=== PATIENT | female | born 1985 | race African-American/Black ===

== ENCOUNTER 2017-08-31 17:30 | Outpatient (CLI) | payer MEDICAID ==
[2017-08-31] MEDS ORDERED: ACETAMINOPHEN 325 MG TABLET PO ONE (18:34)
[2017-08-31] MEDS ORDERED: HYDROXYZINE PAMOATE 50 MG CAPSULE PO ONE (18:34)
[2017-08-31 18:38] LABS: APPEARANCE,URINE CLEAR; BILIRUBIN,URINE NEGATIVE (NEGATIVE); COLOR,URINE STRAW; GLUCOSE, URINE NEGATIVE (NEGATIVE); KETONES,URINE NEGATIVE (NEGATIVE); LEUKOCYTE ESTERASE,URINE NEGATIVE (NEGATIVE); NITRITE,URINE NEGATIVE (NEGATIVE); PROTEIN,URINE NEGATIVE (NEGATIVE); URINE SPECIFIC GRAVITY 1.009; UROBILINOGEN,URINE NEGATIVE mg/dL (<2.0)
[2017-08-31] MEDS ORDERED: ACETAMINOPHEN 325 MG TABLET ONE (18:39)
[2017-08-31 18:46] LABS: URINE AMPHETAMINES SCREEN NEGATIVE; URINE BARBITURATES SCREEN NEGATIVE; URINE BENZODIAZEPINES SCREEN NEGATIVE; URINE COCAINE SCREEN NEGATIVE; URINE MARIJUANA (THC) SCREEN NEGATIVE; URINE METHADONE SCREEN NEGATIVE; URINE PHENCYCLIDINE SCREEN NEGATIVE
--- NOTE | 2017-08-31 19:54 | RADIOLOGY REPORT (SQ) ---
EXAM DESCRIPTION: U/S OB LIMITED COMPLETED DATE/TIME: 08/31/2017 7:31 pm REASON FOR STUDY: cervical length COMPARISON: No previous this TECHNIQUE: Limited transabdominal and endovaginal grayscale ultrasound for evaluation of specific re quested obstetrical parameters. LIMITATIONS: None. FINDINGS: CERVICAL LENGTH: 3.4 cm Closed. LIZ: 6.2 cm. FHR: 144 beats per minute. PRESENTATION: Transverse OTHER: No other significant findings. IMPRESSION: LIMITED OBSTETRICAL ULTRASOUND WITH MEASURED PARAMETERS DELINEATED ABOVE. Trimester of : Second trimester - 13 weeks 1 day to 27 weeks 6 days. TECHNICAL DOCUMENTATION: JOB ID: [id number] [employer]- All Rights Reserved
== END 2017-08-31 20:12 | disposition home or self-care (01) ==
LOC: LC 17:30
PROVIDERS: ATTEND Obstetrics & Gynecology
PROC: 4A1HXCZ Monitoring of Products of Conception, Cardiac Rate, External Approach (ICD-10-PCS; principal; 2017-08-31)
DX: O26.892 Other specified pregnancy related conditions, second trimester (principal); M54.9 Dorsalgia, unspecified; Z3A.24 24 weeks gestation of pregnancy
CPT/HCPCS: 81001; 80307; 76815; 59899; J3490

== ENCOUNTER 2017-11-17 15:10 | Outpatient (CLI) | payer MEDICAID ==
--- NOTE | 2017-11-17 19:40 | Non Stress Test Report ---
Non Stress Test Datetime Report Generated by CPN: 11/17/2017 19:40 DEMOGRAPHIC EGA NST: 34.5 INDICATION Indication for Study: Ordered by Provider MONITORING Monitor Explained: Monitor Explained; Test Explained; Patient Verbalized Understanding Time on Monitor: 11/17/2017 15:18 Time off Monitor: 11/17/2017 18:34 NST Duration: 196 NST INTERVENTIONS NST Interventions: PO Hydration; Reposition Patient Physician Notified NST: H.Corey, CNM BABY A: [id number] BABY A Movement : Present Contraction Frequency : None FHR Baseline : 140 Accelerations : 10X10 Decelerations : None Variability : Moderate 6-25bpm NST Review: Does Not Meet Criteria for Reactive NST NST Review and Verified By : MARY Urbina Results: Non-Reactive NST REPORT Report Trigger: Send Report
--- NOTE | 2017-11-17 20:05 | RADIOLOGY REPORT (SQ) ---
EXAM DESCRIPTION: U/S PROFILE W/O STRESS COMPLETED DATE/TIME: 11/17/2017 7:31 pm REASON FOR STUDY: Non reactive NST - GDM 34.5 weeks COMPARISON: 08/31/2017 TECHNIQUE: Limited maldonado-scale realtime and static images of the fetus to measure specified parameter s. LIMITATIONS: None. FINDINGS: HEART RATE: 150 beats per minute. LIZ: 10.5 cm. BREATHING MOVEMENT: 2 points. MOVEMENT: 2 points. POSTURE AND TONE: 2 points. QUALITATIVE LIZ: 2 points. OTHER: No other significant finding. IMPRESSION: BIOPHYSICAL PROFILE: 03/10. Trimester of : Third - 28 weeks to delivery COMMENT: BREATHING MOVEMENTS: 2 POINTS: PRESENT 0 POINTS: ABSENT MOTION: 2 POINTS: PRESENT 0 POINTS: ABSENT TONE: 2 POINTS: PRESENT 0 POINTS: ABSENT AMNIOTIC FLUID VOLUME: 2 POINTS: LARGEST POCKET GREATER THAN 2 CM DEPTH. 0 POINTS: NO POCKET OF 2 CM. TECHNICAL DOCUMENTATION: JOB ID: [id number] [employer]- All Rights Reserved Reading location - IP/workstation name: [email or web address]
== END 2017-11-17 19:34 | disposition home or self-care (01) ==
LOC: LC 15:10
PROVIDERS: ATTEND Obstetrics & Gynecology Gynecology
PROC: 4A1HXCZ Monitoring of Products of Conception, Cardiac Rate, External Approach (ICD-10-PCS; principal; 2017-11-17)
DX: O24.419 Gestational diabetes mellitus in pregnancy, unspecified control (principal); Z3A.34 34 weeks gestation of pregnancy
CPT/HCPCS: 76819

== ENCOUNTER 2017-11-24 16:25 | Outpatient (CLI) | payer MEDICAID ==
--- NOTE | 2017-11-24 18:44 | RADIOLOGY REPORT (SQ) ---
EXAM DESCRIPTION: U/S PROFILE W/O STRESS COMPLETED DATE/TIME: 11/24/2017 6:27 pm REASON FOR STUDY: non reactive NST COMPARISON: 11/17/2017 TECHNIQUE: Limited maldonado-scale realtime and static images of the fetus to measure specified parameter s. LIMITATIONS: None. FINDINGS: HEART RATE: 162 beats per minute. LIZ: Normal. BREATHING MOVEMENT: 2 points. MOVEMENT: 2 points. POSTURE AND TONE: 2 points. QUALITATIVE LIZ: 2 points. OTHER: Vertex lie. IMPRESSION: BIOPHYSICAL PROFILE: 03/10. Trimester of : Third - 28 weeks to delivery COMMENT: BREATHING MOVEMENTS: 2 POINTS: PRESENT 0 POINTS: ABSENT MOTION: 2 POINTS: PRESENT 0 POINTS: ABSENT TONE: 2 POINTS: PRESENT 0 POINTS: ABSENT AMNIOTIC FLUID VOLUME: 2 POINTS: LARGEST POCKET GREATER THAN 2 CM DEPTH. 0 POINTS: NO POCKET OF 2 CM. TECHNICAL DOCUMENTATION: JOB ID: [id number] [employer]- All Rights Reserved Reading location - IP/workstation name: [email or web address]
--- NOTE | 2017-11-24 18:54 | Non Stress Test Report ---
Non Stress Test Datetime Report Generated by CPN: 11/24/2017 18:54 DEMOGRAPHIC EGA NST: 35.5 INDICATION Indication for Study: Diabetes Mellitus MONITORING Monitor Explained: Monitor Explained; Test Explained; Patient Verbalized Understanding Time on Monitor: 11/24/2017 16:28 Time off Monitor: 11/24/2017 17:56 NST Duration: 88 NST INTERVENTIONS NST Interventions: PO Hydration; For Biophysical Profile Physician Notified NST: C Palomares, CNM BABY A: [id number] BABY A Movement : Present Contraction Frequency : x0 FHR Baseline : 145 Accelerations : 10X10 Decelerations : None Variability : Moderate 6-25bpm NST Review: Does Not Meet Criteria for Reactive NST NST Review and Verified By : Jean Carlos BOOGIE NST Results: Non-Reactive NST COMMENTS NST Comments: BPP ordered NST REPORT Report Trigger: Send Report
== END 2017-11-24 18:52 | disposition home or self-care (01) ==
LOC: LC 16:25
PROVIDERS: ATTEND Obstetrics & Gynecology
PROC: 4A1HXCZ Monitoring of Products of Conception, Cardiac Rate, External Approach (ICD-10-PCS; principal; 2017-11-24)
DX: O24.415 Gestational diabetes mellitus in pregnancy, controlled by oral hypoglycemic drugs (principal); Z3A.35 35 weeks gestation of pregnancy
CPT/HCPCS: 59025; 76819

== ENCOUNTER 2017-11-27 11:29 | Outpatient (CLI) | payer MEDICAID | END 2017-11-27 12:23 | disposition home or self-care (01) | LOC: LC 11:29 | PROVIDERS: ATTEND Obstetrics & Gynecology Gynecology | PROC: 4A1HXCZ Monitoring of Products of Conception, Cardiac Rate, External Approach (ICD-10-PCS; principal; 2017-11-27) | DX: O24.419 Gestational diabetes mellitus in pregnancy, unspecified control (principal); Z3A.36 36 weeks gestation of pregnancy | CPT/HCPCS: 59025 ==

== ENCOUNTER 2017-12-01 14:17 | Outpatient (CLI) | payer MEDICAID ==
--- NOTE | 2017-12-01 14:24 | Non Stress Test Report ---
Non Stress Test Datetime Report Generated by CPN: 12/01/2017 14:24 DEMOGRAPHIC EGA NST: 36.1 INDICATION Indication for Study: Diabetes Mellitus; Ordered by Provider Indication for Study (NST) Other: GDM MONITORING Monitor Explained: Monitor Explained; Test Explained; Patient Verbalized Understanding Time on Monitor: 11/27/2017 11:37 Time off Monitor: 11/27/2017 12:19 NST Duration: 42 NST INTERVENTIONS NST Interventions: PO Hydration; Reposition Patient Physician Notified NST: Zeinab Gil, CNM BABY A: [id number] BABY A Movement : Present Contraction Frequency : 0 FHR Baseline : 125 Accelerations : 15X15 Decelerations : None Variability : Moderate 6-25bpm NST Review: Meets Criteria for Reactive NST NST Review and Verified By : Jose Alberto Goldberg RNC NST Results: Reactive NST REPORT Report Trigger: Send Report
--- NOTE | 2017-12-01 17:27 | Non Stress Test Report ---
Non Stress Test Datetime Report Generated by CPN: 12/01/2017 17:27 DEMOGRAPHIC EGA NST: 36.5 INDICATION Indication for Study: Diabetes Mellitus; Ordered by Provider MONITORING Monitor Explained: Monitor Explained; Test Explained; Patient Verbalized Understanding Time on Monitor: 12/01/2017 15:08 Time off Monitor: 12/01/2017 17:11 NST Duration: 123 NST INTERVENTIONS NST Interventions: PO Hydration; Reposition Patient Physician Notified NST: Dr. Lj BABY A Movement : Present Contraction Frequency : irregular FHR Baseline : 140 Accelerations : 15X15 Decelerations : None Variability : Moderate 6-25bpm NST Review: Meets Criteria for Reactive NST NST Review and Verified By : Jean Carlos De La Cruz RNC NST Results: Reactive NST REPORT Report Trigger: Send Report
== END 2017-12-01 17:15 | disposition home or self-care (01) ==
LOC: LC 14:17
PROVIDERS: ATTEND Obstetrics & Gynecology
PROC: 4A1HXCZ Monitoring of Products of Conception, Cardiac Rate, External Approach (ICD-10-PCS; principal; 2017-12-01)
DX: O24.419 Gestational diabetes mellitus in pregnancy, unspecified control (principal); Z3A.36 36 weeks gestation of pregnancy
CPT/HCPCS: 59025

== ENCOUNTER 2017-12-04 12:17 | Outpatient (CLI) | payer MEDICAID ==
--- NOTE | 2017-12-04 15:40 | RADIOLOGY REPORT (SQ) ---
EXAM DESCRIPTION: U/S PROFILE W/O STRESS COMPLETED DATE/TIME: 12/04/2017 3:08 pm REASON FOR STUDY: iup 37+1 GDM nonreactive NST COMPARISON: None. TECHNIQUE: Limited maldonado-scale realtime and static images of the fetus to measure specified parameter s. LIMITATIONS: None. FINDINGS: HEART RATE: 152 beats per minute. LIZ: 14.5 cm. BREATHING MOVEMENT: 2 points. MOVEMENT: 2 points. POSTURE AND TONE: 2 points. QUALITATIVE LIZ: 2 points. OTHER: No other significant finding. IMPRESSION: BIOPHYSICAL PROFILE: 03/10. Trimester of : Third - 28 weeks to delivery COMMENT: BREATHING MOVEMENTS: 2 POINTS: PRESENT 0 POINTS: ABSENT MOTION: 2 POINTS: PRESENT 0 POINTS: ABSENT TONE: 2 POINTS: PRESENT 0 POINTS: ABSENT AMNIOTIC FLUID VOLUME: 2 POINTS: LARGEST POCKET GREATER THAN 2 CM DEPTH. 0 POINTS: NO POCKET OF 2 CM. TECHNICAL DOCUMENTATION: JOB ID: [id number] [employer]- All Rights Reserved Reading location - IP/workstation name: [email or web address]
== END 2017-12-04 15:30 | disposition home or self-care (01) ==
LOC: LC 12:17
PROVIDERS: ATTEND Student in an Organized Health Care Education/Training Program
PROC: 4A1HXCZ Monitoring of Products of Conception, Cardiac Rate, External Approach (ICD-10-PCS; principal; 2017-12-04)
DX: O24.415 Gestational diabetes mellitus in pregnancy, controlled by oral hypoglycemic drugs (principal); Z3A.37 37 weeks gestation of pregnancy
CPT/HCPCS: 59025; 76819

== ENCOUNTER 2017-12-08 15:52 | Outpatient (CLI) | payer MEDICAID ==
--- NOTE | 2017-12-08 15:58 | Non Stress Test Report ---
Non Stress Test Datetime Report Generated by CPN: 12/08/2017 15:58 DEMOGRAPHIC EGA NST: 37.1 INDICATION Indication for Study: Ordered by Provider Indication for Study (NST) Other: gdm MONITORING Monitor Explained: Monitor Explained; Test Explained; Patient Verbalized Understanding Time on Monitor: 12/04/2017 12:33 Time off Monitor: 12/04/2017 15:24 NST Duration: 171 NST INTERVENTIONS NST Interventions: PO Hydration; Meal Given; Reposition Patient; Vibroacoustic Stim; For Biophysical Profile Physician Notified NST: H Corey CNM Physician Notified NST: Corey BABY A: [id number] BABY A Movement : Present Movement : Present Contraction Frequency : denies FHR Baseline : 145 Accelerations : 10X10 Decelerations : None Variability : Moderate 6-25bpm NST Review: Does Not Meet Criteria for Reactive NST NST Review and Verified By : Jose Alberto Goldberg [facility] NST Results: Reactive NST COMMENTS NST Comments: bpp 8/8 NST REPORT Report Trigger: Send Report
--- NOTE | 2017-12-15 10:45 | Non Stress Test Report ---
Non Stress Test Datetime Report Generated by CPN: 12/15/2017 10:45 DEMOGRAPHIC EGA NST: 37.5 INDICATION Indication for Study: Diabetes Mellitus; Ordered by Provider VITAL SIGNS Temperature - NST: 98.2 Pulse - NST: 136 RESP - NST: 18 NBPSYS NST: 119 NBPDIA NST: 73 MONITORING Monitor Explained: Monitor Explained; Test Explained; Patient Verbalized Understanding Time on Monitor: 12/08/2017 16:03 Time off Monitor: 12/08/2017 16:44 NST Duration: 41 NST INTERVENTIONS NST Interventions: PO Hydration; Reposition Patient Physician Notified NST: DR BOWIE BABY A: [id number] BABY A Movement : Present Contraction Frequency : X2 FHR Baseline : 140 Accelerations : 15X15 Decelerations : None Variability : Moderate 6-25bpm NST Review: Meets Criteria for Reactive NST NST Review and Verified By : Diana Pernell RNC NST Results: Reactive NST REPORT Report Trigger: Send Report
== END 2017-12-08 16:48 | disposition home or self-care (01) ==
LOC: LC 15:52
PROVIDERS: ATTEND Obstetrics & Gynecology
PROC: 4A1HXCZ Monitoring of Products of Conception, Cardiac Rate, External Approach (ICD-10-PCS; principal; 2017-12-08)
DX: O24.419 Gestational diabetes mellitus in pregnancy, unspecified control (principal); Z3A.37 37 weeks gestation of pregnancy
CPT/HCPCS: 59025

== ENCOUNTER 2017-12-15 11:15 | Outpatient (CLI) | payer MEDICAID | END 2017-12-15 12:06 | disposition home or self-care (01) | LOC: LC 11:15 | PROVIDERS: ATTEND Obstetrics & Gynecology | PROC: 4A1HXCZ Monitoring of Products of Conception, Cardiac Rate, External Approach (ICD-10-PCS; principal; 2017-12-15) | DX: O24.419 Gestational diabetes mellitus in pregnancy, unspecified control (principal); Z3A.38 38 weeks gestation of pregnancy | CPT/HCPCS: 36415; 59025; 83036 ==

== ENCOUNTER 2017-12-16 06:37 | Inpatient (IN) | payer MEDICAID ==
--- NOTE | 2017-12-16 06:40 | Non Stress Test Report ---
Non Stress Test Datetime Report Generated by CPN: 12/16/2017 06:40 DEMOGRAPHIC EGA NST: 38.5 INDICATION Indication for Study: Diabetes Mellitus; Ordered by Provider MONITORING Monitor Explained: Monitor Explained; Test Explained; Patient Verbalized Understanding Time on Monitor: 12/15/2017 11:33 Time off Monitor: 12/15/2017 11:54 NST Duration: 21 NST INTERVENTIONS NST Interventions: PO Hydration; Reposition Patient Physician Notified NST: CBouchra Palomares, CNM BABY A: [id number] BABY A Movement : Present Contraction Frequency : X1 FHR Baseline : 145 Accelerations : 15X15 Decelerations : None Variability : Moderate 6-25bpm NST Review: Meets Criteria for Reactive NST NST Review and Verified By : MARY De La Garza Results: Reactive NST REPORT Report Trigger: Send Report
[2017-12-16 07:36] LABS: ABSOLUTE BASOPHILS # (AUTO) 0.1 10^3/uL (0.0-0.2); ABSOLUTE EOSINOPHILS # (AUTO) 0.2 10^3/uL (0.0-0.6); ABSOLUTE LYMPHOCYTES (AUTO) 2.4 10^3/uL (0.5-4.7); ABSOLUTE MONOCYTES (AUTO) 0.6 10^3/uL (0.1-1.4); ABSOLUTE NEUT (AUTO) 4.3 10^3/uL (1.7-8.2); BASOPHILS % (AUTO) 0.7 % (0-2); EOSINOPHILS % (AUTO) 2.1 % (0-6); HEMATOCRIT 34.1 % (36.0-47.0); HEMOGLOBIN 11.6 g/dL (12.0-15.5); LYMPHOCYTES % (AUTO) 31.9 % (13-45); MEAN CORPUSCULAR HEMOGLOBIN 28.6 pg (27.0-33.4); MEAN CORPUSCULAR HGB CONC 33.9 g/dL (32.0-36.0); MEAN CORPUSCULAR VOLUME 84 fl (80-97); MONOCYTES % (AUTO) 7.6 % (3-13); PLATELET COUNT 250 10^3/uL (150-450); RED BLOOD COUNT 4.04 10^6/uL (3.72-5.28); RED CELL DISTRIBUTION WIDTH 14.7 % (11.5-14.0); SEGMENTED NEUTROPHILS % (AUTO) 57.7 % (42-78); TOTAL CELLS COUNTED % (AUTO) 100 %; WHITE BLOOD COUNT 7.5 10^3/uL (4.0-10.5)
[2017-12-16 08:01] LABS: ALANINE AMINOTRANSFERASE 27 U/L (9-52); ALBUMIN 2.8 g/dL (3.5-5.0); ALKALINE PHOSPHATASE 131 U/L (38-126); ANION GAP 11 (5-19); ASPARTATE AMINO TRANSFERASE 21 U/L (14-36); BLOOD UREA NITROGEN 10 mg/dL (7-20); CARBON DIOXIDE 17 mmol/L (22-30); CHLORIDE 109 mmol/L (98-107); GLUCOSE 190 mg/dL (75-110); POTASSIUM 4.1 mmol/L (3.6-5.0); SODIUM 137.2 mmol/L (137-145); TOTAL PROTEIN 5.5 g/dL (6.3-8.2)
[2017-12-16 08:04] LABS: APPEARANCE,URINE CLOUDY; BILIRUBIN,URINE NEGATIVE (NEGATIVE); COLOR,URINE YELLOW; GLUCOSE, URINE NEGATIVE (NEGATIVE); KETONES,URINE TRACE mg/dL (NEGATIVE); LEUKOCYTE ESTERASE,URINE MODERATE (NEGATIVE); NITRITE,URINE NEGATIVE (NEGATIVE); PROTEIN,URINE 30 mg/dL (NEGATIVE); URINE SPECIFIC GRAVITY 1.012; UROBILINOGEN,URINE NEGATIVE mg/dL (<2.0)
[2017-12-16] MEDS ORDERED: PENICILLIN G-K 5 MILLION UNIT VIAL ONE ×3 (08:04→16:51)
[2017-12-16] MEDS ORDERED: OXYTOCIN/NORMAL SALINE 20 UNIT/1,000 ML RTUINJ ONE (08:04)
[2017-12-16] MEDS ORDERED: LIDOCAINE 1% INJ-PF (10 MG/ML) 30 ML SDV ONE (08:04)
[2017-12-16] MEDS ORDERED: MISOPROSTOL 0.2 MG TABLET ONE (08:04)
[2017-12-16 08:09] LABS: BILIRUBIN,TOTAL < 0.1 mg/dL (0.2-1.3)
[2017-12-16] MEDS ORDERED: RINGERS SOLUTION,LACTATED 1,000 ML IV PRN (08:37)
[2017-12-16] MEDS ORDERED: RINGERS SOLUTION,LACTATED 300 ML IV ONE (08:37)
[2017-12-16] MEDS ORDERED: OXYTOCIN/NORMAL SALINE 20 UNIT/1,000 ML RTUINJ IV PRN ×2 (08:37→17:36)
[2017-12-16 08:39] LABS: URINE AMPHETAMINES SCREEN NEGATIVE; URINE BARBITURATES SCREEN NEGATIVE; URINE BENZODIAZEPINES SCREEN NEGATIVE; URINE COCAINE SCREEN NEGATIVE; URINE MARIJUANA (THC) SCREEN NEGATIVE; URINE METHADONE SCREEN NEGATIVE; URINE PHENCYCLIDINE SCREEN NEGATIVE
[2017-12-16] MEDS ORDERED: PENICILLIN G POTASSIUM 5,000,000 UNIT in DEXTROSE 5%-WATER 100 ML IV ONE (08:42)
--- NOTE | 2017-12-16 09:22 | Admission Physical ---
Datetime Report Generated by CPN: 12/16/2017 09:22 CURRENT ADMISSION Hx Assessment: The History has been Reviewed and is Current Chief Complaint: Scheduled Induction of Labor Indication for Induction: Maternal Diabetes Indication for Induction- Other: GDMA2, non-compliance Admit Impression : Term, Intrauterine ; No Active Labor; Intact Membranes; Induction of Labor Admit Plan: Admit to Unit; Initiate Labor Induction Protocol ALLERGIES Medication Allergies: Yes (Annotations: Data stored by [facility] on behalf of user) Medication Allergies: oxycodone HCl (12/15/2017) Latex: No Latex Allergies (Annotations: Data stored by N on behalf of user) Food Allergies: N/A Environmental Allergies: N/A OBSTETRICAL HISTORY EDC: 12/24/2017 00:00 : 8 Para: 2 Term: 2 : 0 SAB: 3 IAB: 0 Ectopic: 1 Livin Cesareans: 0 VBACs: 0 Multiple Births: 0 Gestational Diabetes: No Rh Sensitization: No Incompetent Cervix: No SHANTI: No Infertility: No ART Treatment: No Uterine Anomaly: No IUGR: No Hx Previous C/S: No Macrosomia: No Hx Loss/Stillborn: No PIH: No Hx : No Placenta Previa/Abruption: No Depression/PP Depression: No PTL/PROM: No Post Hemorrhage: No Obstetrical History Comments: G1 G2 G3 G4 G5 G6 G7 G8 current SEE RECORDS Alcohol: No Marijuana : No Cocaine: No Other Illicit Drugs: No Cigarettes: Former Smoker. 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 Surgery: No Heart Disease: No Hosp/Surgery: No Autoimmune Disorder: No Anesthetic Complications: No Kidney Disease: No Abnormal Pap Smear: No Neuro/Epilepsy: No Psychiatric Disorders: No Other Medical Diseases: No Hepatitis/Liver Disease: No Significant Family History: No Varicosities/Phlebitis: No Trauma/Violence : No Thyroid Dysfunction: No INFECTIOUS HISTORY Gonorrhea: No Genital Herpes: Yes Chlamydia: No Tuberculosis: No Syphilis: No Hepatitis: No HIV/AIDS Exposure: No Rash or Viral Illness: No HPV: No PHYSICAL EXAM General: Normal HEENT: Normal Neurologic: Normal Thyroid: Deferred Heart: Normal Lungs: Normal Breast: Normal Back: Normal Abdomen: Normal Genitourinary Exam: Normal Extremities: Normal DTRs: Normal Pelvic Type: Adequate Physical Exam Comments: pelvis proven 8lbs 14 oz Vital Signs: Reviewed VAGINAL EXAM Dilatation: 3 Effacement: 50 Station: -2 Contraction Comments: rare FETUS A EGA: 38.6 Monitoring: External US FHR- Baseline: 135 Variability: Moderate 6-25bpm Accelerations: 15X15 Decelerations: None FHR Category: Category I Estimated Weight (gm): 4000 Presentation: Vertex Admit Comment: Admit to L _ D, iol gdmA2 on metformin non-compliant care started with ochd hx pre-e, on asa hx hsv no lesions or symptoms gbs +, pcn Pitocin per protocol may have epidural prn PLANS FOR LABOR AND DELIVERY Labor and Delivery: None Pain Management: Epidural Feeding Preference: Breast Benefit of Breast Feed Discussed: Yes Circumcision: N/A INFORMED CONSENT Assignment: Payal Griffin MD Signature: with User ID: Fan : with User ID: Fan
[2017-12-16] MEDS ORDERED: BUPIVACAINE HCL 0.25 % INJ/PF (2.5 MG/1 ML) 30 ML VIAL ONE ×2 (12:38→15:53)
[2017-12-16] MEDS ORDERED: FENTANYL/BUPIVACAINE/NS/PF 300 MCG/150 ML RTUINJ EPI ONE (12:38)
[2017-12-16] MEDS ORDERED: EPHEDRINE SULFATE INJ 50 MG/1 ML AMPULE ONE (12:38)
[2017-12-16] MEDS: PENICILLIN G POTASSIUM 2,500,000 UNIT in DEXTROSE 5%-WATER 50 ML IV SCH ×2 (12:46→16:52)
--- NOTE | 2017-12-16 15:15 | L&D Progress Notes ---
PROGRESS NOTES Datetime Report Generated by CPN: 12/16/2017 15:15 PROGRESS NOTE Impression: Reassuring Heart Rate Procedures: Artificial ROM; Sterile Vag Exam Plan: Continue Present Management Comment: Comfortable with epidural AROM, clear Pitocin at 20 mu continue VAGINAL EXAM Dilatation: 5 Dilatation: 3 Effacement: 70 Effacement: 50 Station: -3 Station: -2 Contractions: 2-5 Contractions: rare MEMBRANES Membranes: Ruptured Amniotic Fluid Color: Clear FETUS A FHR - Baseline: 135 Monitoring: External US Variability: Moderate 6-25bpm Accelerations: 15X15 Decelerations: None FHR Category: Category I Estimated Weight (gm): 4000 Presentation: Vertex SIGNATURE SIGNATURE: [id number];14,[id number];13,[id number] SIGNATURE: ,[id number];14,[id number] SIGNATURE: 14,[id number] SIGNATURE: 14,[id number] SIGNATURE: ,[id number] SIGNATURE: ,[id number] SIGNATURE: 14,[id number] SIGNATURE: 14,[id number] SIGNATURE: 14,[id number] Assignment: Payal Griffin MD Signature: with User ID: [email or web address] : with User ID: [email or web address]
[2017-12-16] MEDS ORDERED: FENTANYL CITRATE INJ/PF 100 MCG/2 ML AMPUL IV ONE (16:36)
[2017-12-16] MEDS ORDERED: FENTANYL CITRATE INJ/PF 100 MCG/2 ML AMPUL ONE (16:39)
[2017-12-16] MEDS ORDERED: PROMETHAZINE HCL 25 MG TABLET PO PRN (17:36)
[2017-12-16] MEDS ORDERED: DIBUCAINE 1% OINTMENT 28 GM TP PRN (17:36)
[2017-12-16] MEDS ORDERED: PROMETHAZINE HCL INJ 25 MG/1 ML VIAL IV PRN (17:36)
[2017-12-16] MEDS ORDERED: NA PHOS,M-B/NA PHOS,DI-BA (ADULT) 133 ML ENEMA PR PRN (17:36)
[2017-12-16] MEDS ORDERED: MAGNESIUM HYDROXIDE SUSP 30 ML UDCUP PO PRN (17:36)
[2017-12-16] MEDS ORDERED: MEASLES,MUMPS&RUBELLA VACC/PF 0.5 ML VIAL SUBCUT PRN (17:36)
[2017-12-16] MEDS ORDERED: PSEUDOEPHEDRINE HCL 30 MG TABLET PO PRN (17:36)
[2017-12-16] MEDS ORDERED: BENZOCAINE/MENTHOL AEROSOL SPRAY 56 ML TOP PRN (17:36)
[2017-12-16] MEDS ORDERED: DIPH/PERTUSS(ACELL)/TETANUS VAC/PF 0.5 ML SYR (>=10YO) IM PRN (17:36)
[2017-12-16] MEDS ORDERED: ACETAMINOPHEN WITH CODEINE #3 TABLET PO PRN ×2 (17:36)
[2017-12-16] MEDS ORDERED: DIPHENHYDRAMINE HCL 25 MG CAPSULE PO PRN (17:36)
[2017-12-16] MEDS ORDERED: ACETAMINOPHEN 325 MG TABLET PO PRN (17:36)
[2017-12-16] MEDS ORDERED: PROMETHAZINE HCL 25 MG SUPP.RECT PR PRN (17:36)
[2017-12-16] MEDS ORDERED: GLYCERIN/WITCH HAZEL LEAF 1 EACH MED..PAD TP PRN (17:36)
[2017-12-16] MEDS ORDERED: ZOLPIDEM TARTRATE 5 MG TABLET PO PRN (17:36)
[2017-12-16] MEDS ORDERED: OXYTOCIN 10 UNIT/ML VIAL ONE (17:45)
--- NOTE | 2017-12-16 18:41 | Warning Signs in Babies ---
VOD Warning Signs Datetime Report Generated by [facility]: 12/16/2017 18:40 VOD#608 -Warning Signs in Babies: Needs to be viewed. (12/16/2017 18:00:Yumiko Calhoun RN)
[2017-12-16] MEDS ORDERED: MISOPROSTOL 0.2 MG TABLET PR ONE (18:56)
--- NOTE | 2017-12-16 19:11 | Delivery Summary ---
Del Sum A-C Datetime Report Generated by CPN: 12/16/2017 19:11 DELIVERY PERSONNEL DELIVERY PERSONNEL: [id number] Delivery Doctor:: Loli Nicole CNM Labor and Delivery Nurse:: Yumiko Calhoun RNsubcontract administrator Nurse:: Emily Mckoy RN Assembly Machine Tool Setter/HARVEST CONTRACTOR: Becca Mohsen, BREAK AND LOAD OPERATOR Assembly Machine Tool Setter/HARVEST CONTRACTOR: Edel Randall CNA II Additional Personnel: : Tennille CONNOLLY, RN MATERNAL INFORMATION Delivery Anesthesia: Epidural Medications After Delivery: Pitocin 10 Units IM Maternal Complications: None Provider Comments: of viable female infant over intact perineum, head, shoulders, and body delivered without difficulty, with spontaneous cry and respirations to maternal abdomen, cord clamped X2 after 2 min delay, cut free by pts husbnad, kept skin to skin, spontaneous delivery of placetna via villanueva mechanism, appears intact, 3 VC, vagina and perineum inspected, no lacerations noted hemostasis acheived with external fundal massage and IM pit (iv infiltrated). Mother and in stable condition, [facility] care. LABOR SUMMARY EDC: 12/24/2017 00:00 No. Babies in Womb: 1 Attempted: No Labor Anesthesia: Epidural LABOR INFORMATION Reason for Induction: Maternal Diabetes Onset of Labor: 12/16/2017 12:32 Complete Dilatation: 12/16/2017 17:32 Oxytocin: Induction Group B Beta Strep: positive Antibiotics # of Doses: 3 Antibiotics Time of Last Dose: 165 Name of Antibiotic Given: PENICILLIN G Steroids Given: None Reason Steroids Not Administered: Not Applicable MEMBRANES Membranes Rupture Method: Artificial Rupture of Membranes: 12/16/2017 15:07 Length of Rupture (hr): 2.53 Amniotic Fluid Color: Clear Amniotic Fluid Amount: Moderate STAGES OF LABOR Stage 1 hr: 5 Stage 1 min: 0 Stage 2 hr: 0 Stage 2 min: 7 Stage 3 hr: 0 Stage 3 min: 4 Total Time in Labor hr: 5 Total Time in Labor min: 11 VAGINAL DELIVERY Episiotomy: None Laceration #1: None Laceration Extension #1: N/A Laceration Repair: Not Applicable Sponge Count Correct: N/A Sharps Count Correct: N/A CSECTION DELIVERY Primary Indication: N/A Secondary Indication: N/A CSection Incidence: N/A Labor: N/A Elective: N/A CSection Incision: N/A BABY A INFORMATION Infant Delivery Date/Time: 12/16/2017 17:39 Method of Delivery: Vaginal Born in Route : No : N/A Forceps: N/A Vacuum Extraction: N/A Shoulder Dystocia : No PRESENTATION/POSITION BABY A Presentation: Cephalic Cephalic Presentation: Vertex Vertex Position: Right Occipital Anterior Breech Presentation: N/A PLACENTA INFORMATION BABY A Placenta Delivery Time : 12/16/2017 17:43 Placenta Method of Delivery: Spontaneous Placenta Status: Delivered SCORES BABY A Heart Rate 1 min: >100 bpm Resp Effort 1 min: Good Cry Reflex Irritability 1 min: Cough or Sneeze or Pulls Away Muscle Tone 1 min: Active Motion Color 1 min: Blue/Pale Resuscitation Effort 1 min: Tactile Stimulation SCORE 1 MIN: 8 Heart Rate 5 min: >100 bpm Resp Effort 5 min: Good Cry Reflex Irritability 5 min: Cough or Sneeze or Pulls Away Muscle Tone 5 min: Active Motion Color 5 min: Body [place], Extremities Blue Resuscitation Effort 5 min: Tactile Stimulation SCORE 5 MIN: 9 INFORMATION BABY A Gestational Age at Delivery: 38.6 Gestational Status: Early Term- 37- 38.6 Weeks Outcome : Liveborn Condition : Stable Sex: Female IDENTIFICATION BABY A Infant Verification Date/Time: 12/16/2017 17:55 ID Band Number: [id number] Mother's Name Verified: Yes Infant RN Verifying Infant: BL ROULUND, RN Additional Verifying Personnel: M EVAN, RN WEIGHT/LENGTH BABY A Infant Birthweight (gm): 3840 Infant Weight (lb): 8 Weight (oz): 7 Length (in): 21.00 Infant Length (cm): 53.34 CORD INFORMATION BABY A No. Cord Vessels: 3 Nuchal Cord : N/A Cord Blood Taken: Yes-For Eval (Mom's Blood Type - or O+) Infant Suction: None ASSESSMENT BABY A Complications: Decreased Variability Physical Findings at Delivery: Within Normal Limits Respirations: Appears Normal Skin to Skin: Yes Skin to Skin Time (min): 20 Tare Weigher/ALS Called : No Care By: Palomo Mckoy Rn, Ene Connolly, RN Transferred To: Remains with Mother BABY B INFORMATION : N/A SIGNATURES Assignment: Payal Griffin MD Signature: with User ID: Fan : with User ID: Fan
[2017-12-16] MEDS: FERROUS SULFATE 325 MG TABLET PO SCH (22:04)
[2017-12-16] MEDS: DOCUSATE SODIUM 100 MG CAPSULE PO SCH (22:04)
[2017-12-16] MEDS: IBUPROFEN 800 MG TABLET PO SCH (22:07)
[2017-12-16] MEDS: FAMOTIDINE 20 MG TABLET PO SCH (22:07)
[2017-12-17] MEDS: IBUPROFEN 800 MG TABLET PO SCH ×3 (05:20→21:01)
[2017-12-17 07:09] LABS: HEMATOCRIT 34.1 % (36.0-47.0); HEMOGLOBIN 11.4 g/dL (12.0-15.5); MEAN CORPUSCULAR HEMOGLOBIN 28.5 pg (27.0-33.4); MEAN CORPUSCULAR HGB CONC 33.5 g/dL (32.0-36.0); MEAN CORPUSCULAR VOLUME 85 fl (80-97); PLATELET COUNT 267 10^3/uL (150-450); RED BLOOD COUNT 4.01 10^6/uL (3.72-5.28); RED CELL DISTRIBUTION WIDTH 14.9 % (11.5-14.0); WHITE BLOOD COUNT 14.3 10^3/uL (4.0-10.5)
--- NOTE | 2017-12-17 09:10 | PDOC PROGRESS REPORT ---
Subjective-OB Progress Note for:: 12/17/17 Physical Exam (OB) Vital Signs: Temp Pulse Resp BP Pulse Ox 98.1 F 90 18 116/77 98 12/17/17 08:25 12/17/17 08:25 12/17/17 08:25 12/17/17 08:25 12/17/17 08:25 Intake & Output 12/16/17 12/17/17 12/18/17 06:59 06:59 06:59 Weight 122.1 kg - PIH/Pre-Eclampsia Clonus: Negative Headache: Absent Epigastric Pain: No Visual Changes: No - Lochia Lochia Amount: Small 10-25 ml Lochia Color: Rubra/Red - Abdomen Description: Tender, Soft Hernia Present: No Bowel Sounds: Normoactive Flatus Presence: Present Stool: Yes Fundal Description: Firm Fundal Height: u/u - u/2 Objective-Diagnostic Laboratory: 12/17/17 06:48 12/16/17 07:20 12/17/17 06:48 WBC 14.3 H RBC 4.01 Hgb 11.4 L Hct 34.1 L MCV 85 MCH 28.5 MCHC 33.5 RDW 14.9 H Plt Count 267
[2017-12-17] MEDS: DOCUSATE SODIUM 100 MG CAPSULE PO SCH ×2 (09:31→18:23)
[2017-12-17] MEDS: FERROUS SULFATE 325 MG TABLET PO SCH ×2 (09:31→18:23)
[2017-12-17] MEDS: SENNOSIDES/DOCUSATE 8.6-50 MG 1 EACH TABLET PO SCH (09:31)
[2017-12-17] MEDS: FAMOTIDINE 20 MG TABLET PO SCH ×2 (09:31→21:01)
[2017-12-17] MEDS: PRENATAL VITAMIN W DHA CAPSULE PO SCH (09:35)
[2017-12-18] MEDS: IBUPROFEN 800 MG TABLET PO SCH ×2 (05:47→14:22)
--- NOTE | 2017-12-18 10:49 | PDOC DISCHARGE SUMMARY ---
Final Diagnosis Discharge Date: 12/18/17 Discharge Data - Discharge Medication Prescriptions: Ibuprofen [Motrin 800 mg Tablet] 800 mg PO Q8 #90 tablet Home Medications: Vits96/Iron Fum/Folic [ Tablet] 1 each PO [id number] 10/18/14 Ibuprofen [Motrin 800 mg Tablet] 800 mg PO Q8 #90 tablet 12/18/17 Reason(s) for Admission: Induction of Labor Procedures: NST Intrapartum Procedure(s): Spontaneous Vaginal Delivery - Diagnosis Test Laboratory: Temp Pulse Resp BP Pulse Ox 98.0 F 88 17 126/84 H 98 12/18/17 09:00 12/18/17 09:00 12/18/17 09:00 12/18/17 09:00 12/18/17 09:00 12/16/17 12/16/17 12/17/17 06:50 07:20 06:48 RBC 4.04 4.01 Hgb 11.6 L 11.4 L Hct 34.1 L 34.1 L Urine Opiates Screen NEGATIVE - Discharge information/Instructions Discharge Activity: Balance Activity w/Rest Discharge Diet: Regular Disposition: HOME, SELF-CARE Follow up with: [facility] in: 3, Weeks
[2017-12-18] MEDS: FAMOTIDINE 20 MG TABLET PO SCH (11:16)
[2017-12-18] MEDS: PRENATAL VITAMIN W DHA CAPSULE PO SCH (11:16)
[2017-12-18] MEDS: FERROUS SULFATE 325 MG TABLET PO SCH ×2 (11:16→18:39)
[2017-12-18] MEDS: DOCUSATE SODIUM 100 MG CAPSULE PO SCH ×2 (11:17→18:39)
[2017-12-18] MEDS: SENNOSIDES/DOCUSATE 8.6-50 MG 1 EACH TABLET PO SCH (11:17)
[2017-12-18 20:52] VITALS: BP 128/85
--- NOTE | 2017-12-25 03:57 | Admission Physical ---
Datetime Report Generated by N: 12/25/2017 03:57 CURRENT ADMISSION Hx Assessment: The History has been Reviewed and is Current Chief Complaint: Other Chief Complaint Other: elevated blood pressure, pt given Magnesium in the ER. Indication for Induction: Not Applicable Indication for Induction- Other: GDMA2, non-compliance Admit Impression : Observation/Evaluation Admit Plan: Admit to Unit ALLERGIES Medication Allergies: Yes (Annotations: Data stored by [facility] on behalf of user) Medication Allergies: oxycodone HCl (12/15/2017) Latex: No Latex Allergies (Annotations: Data stored by [facility] on behalf of user) Food Allergies: N/A Environmental Allergies: N/A OBSTETRICAL HISTORY EDC: 12/24/2017 00:00 : 8 Para: 2 Term: 2 : 0 SAB: 3 IAB: 0 Ectopic: 1 Livin Cesareans: 0 VBACs: 0 Multiple Births: 0 Gestational Diabetes: No Rh Sensitization: No Incompetent Cervix: No SHANTI: No Infertility: No ART Treatment: No Uterine Anomaly: No IUGR: No Hx Previous C/S: No Macrosomia: No Hx Loss/Stillborn: No PIH: No Hx : No Placenta Previa/Abruption: No Depression/PP Depression: No PTL/PROM: No Post Hemorrhage: No Obstetrical History Comments: G1 G2 G3 G4 G5 G6 G7 G8 current SEE RECORDS Alcohol: No Marijuana : No Cocaine: No Other Illicit Drugs: No Cigarettes: Former Smoker. 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 Surgery: No Heart Disease: No Hosp/Surgery: No Autoimmune Disorder: No Anesthetic Complications: No Kidney Disease: No Abnormal Pap Smear: No Neuro/Epilepsy: No Psychiatric Disorders: No Other Medical Diseases: No Hepatitis/Liver Disease: No Significant Family History: No Varicosities/Phlebitis: No Trauma/Violence : No Thyroid Dysfunction: No INFECTIOUS HISTORY Gonorrhea: No Genital Herpes: Yes Chlamydia: No Tuberculosis: No Syphilis: No Hepatitis: No HIV/AIDS Exposure: No Rash or Viral Illness: No HPV: No PHYSICAL EXAM General: Normal HEENT: Normal Neurologic: Normal Thyroid: Normal Heart: Normal Lungs: Normal Breast: Deferred Back: Normal Abdomen: Normal Genitourinary Exam: Deferred Extremities: Normal DTRs: Normal Pelvic Type: Not Done Physical Exam Comments: pelvis proven 8lbs 14 oz Vital Signs: Reviewed VAGINAL EXAM Dilatation: 3 Effacement: 50 Station: -2 Contraction Comments: rare MEMBRANES Membranes: Ruptured Amniotic Fluid Color: Clear FETUS A EGA: 38.6 Monitoring: External US FHR- Baseline: 135 Variability: Moderate 6-25bpm Accelerations: 15X15 Decelerations: None FHR Category: Category I Estimated Weight (gm): 4000 Presentation: Vertex Admit Comment: Pt is delivered and is on Magnesium. She will be admitted for evaluation. We will have to wean off the MgSO4 and treat her blood pressure if elevated. PLANS FOR LABOR AND DELIVERY Labor and Delivery: None Pain Management: Epidural Feeding Preference: Breast Benefit of Breast Feed Discussed: Yes Circumcision: N/A INFORMED CONSENT Assignment: Payal Griffin MD Signature: with User ID: Amy : with User ID: Amy
== END 2017-12-18 21:31 | disposition home or self-care (01) | DRG 774 ==
LOC: LR 06:37 → 2N 20:13
PROVIDERS: ADMIT Student in an Organized Health Care Education/Training Program; ATTEND Student in an Organized Health Care Education/Training Program
PROC: 10E0XZZ Delivery of Products of Conception, External Approach (ICD-10-PCS; principal; 2017-12-16)
DX: O24.429 Gestational diabetes mellitus in childbirth, unspecified control (principal); O98.32 Other infections with a predominantly sexual mode of transmission complicating childbirth; O99.824 Streptococcus B carrier state complicating childbirth; O76 Abnormality in fetal heart rate and rhythm complicating labor and delivery; Z3A.38 38 weeks gestation of pregnancy; Z37.0 Single live birth; Z91.14 Patient's other noncompliance with medication regimen; A60.00 Herpesviral infection of urogenital system, unspecified
CPT/HCPCS: 36415; 80053; 80307; 81005; 82962; 85025; 85027; 86592; 86850; 86900; 86901; C1726; J2540; J2590; J3010; J3490

== ENCOUNTER 2017-12-24 22:40 | Observation (INO) | payer MEDICAID ==
[2017-12-25] MEDS ORDERED: MAGNESIUM SULFATE 4 GM/100 ML RTUPB IV ONE (01:06)
--- NOTE | 2017-12-25 01:11 | ER Document Report ---
ED General - General Chief Complaint: Headache Stated Complaint: BLOOD PRESSURE PROBLEM Time Seen by Provider: 12/25/17 01:02 Notes: Patient is a 32-year-old female who presents with complaints of high blood pressure and headache. She is exactly 1 week . She started noticing some edema about 2 days ago. She no swelling in her feet and hands. Today she is still having headache and therefore check her blood pressure relates her blood pressure was high. Blood pressure systolically is in the 170s at home. No blurred vision. Some nausea but no vomiting. No difficulty breathing. No abdominal pain. She was 38 weeks and 6 days gestation at . She had normal vaginal delivery. Child has been doing well. She did not have preeclampsia blood pressure issues during this . She did have preeclampsia during her first . TRAVEL OUTSIDE OF THE [place] IN LAST 30 DAYS: No - Related Data Allergies/Adverse Reactions: oxycodone HCl [From Percocet] Allergy (Verified 12/15/17 11:38) Past Medical History - Social History Smoking Status: Never Smoker Frequency of alcohol use: None Drug Abuse: None Family History: Reviewed & Not Pertinent Past Surgical History: Reports: Hx Abdominal Surgery - Diagnostic laparoscopy, Hx Gynecologic Surgery - Ectopic - Immunizations Hx Diphtheria, Pertussis, Tetanus Vaccination: No - rec'd Aug 2014 Review of Systems - Review of Systems Notes: My Normal Review Basic REVIEW OF SYSTEMS: CONSTITUTIONAL : Denies fever, chills, or sweats. Denies recent illness. EENT: Denies eye, ear, throat, or mouth pain or symptoms. Denies nasal or sinus congestion. CARDIOVASCULAR: Denies chest pain. RESPIRATORY: Denies cough, cold, or chest congestion. Denies shortness of breath, difficulty breathing, or wheezing. GASTROINTESTINAL: Denies abdominal pain. Denies nausea, vomiting, or diarrhea. Denies constipation. Last BM: GENITOURINARY: Denies difficulty urinating, painful urination, burning, frequency, or blood in urine. FEMALE GENITOURINARY: Denies vaginal bleeding, abnormal or irregular periods. LMP: 1 week MUSCULOSKELETAL: Some hand-foot swelling. SKIN: Denies rash or skin lesions. HEMATOLOGIC : Denies easy bruising or bleeding. LYMPHATIC: Denies swollen, enlarged glands. NEUROLOGICAL: Denies altered mental status or loss of consciousness. Has a headache. Denies weakness or paralysis or loss of use of either side. Denies problems with gait or speech. Denies sensory or motor loss. ALL OTHER SYSTEMS REVIEWED AND NEGATIVE. Physical Exam - Vital signs Vitals: Temp Pulse Resp BP Pulse Ox 98.4 F 83 18 172/96 H 99 12/24/17 23:16 12/24/17 23:16 12/24/17 23:16 12/24/17 23:16 12/24/17 23:16 - Notes Notes: General Appearance: Well nourished, alert, cooperative, no acute distress, no obvious discomfort. Vitals: reviewed, See vital signs table. Head: no swelling or tenderness to the head Eyes: PERRL, EOMI, Conjuctiva clear Mouth: No decreasd moisture Neck: Supple, no neck tenderness, No thyromegaly Lungs: No wheezing, No rales, No rhonci, No accessory muscle use, good air exchange bilaterally. Heart: Normal rate, Regular rythm, No murmur, no rub Abdomen: Normal BS, soft, No rigidity, No abdominal tenderness, No guarding, no rebound, no abdominal masses, no organomegaly Extremities: strength 5/5 in all extremities, good pulses in all extremities, no swelling or tenderness in the extremities, 1+ bilateral lower extremity edema. Skin: warm, dry, appropriate color, no rash Neuro: speech clear, oriented x 3, normal affect, responds appropriately to questions. Cranial nerves II through XII are intact. Distal sensation intact. Patient moves all extremities without difficulty. Course - Re-evaluation Re-evalutation: 12/25/17 01:53 I ordered 4 g of magnesium IV to be given to the patient being my concern for preeclampsia. When the nurses called up to labor and delivery to get the 4 g bag the labor and delivery nurses refused to give the bags to the nurses saying that they preferred to infuse magnesium up there. I do not think it is appropriate for the patient to wait to receive the magnesium to until she is transferred up there and therefore I will just have the nurses give two 2 g bags down here in the ED being that we do have the 2 g bags of magnesium down here. 12/25/17 01:59 She currently receiving magnesium infusion. Patient's right patellar reflex is just slightly hyperreflexic. Left patellar reflex is normal. 12/25/17 03:[address] Chester. He agrees with admitting the patient for treatment of preeclampsia. I did recheck the patient's reflexes. Patient's patellar reflexes are equal bilaterally and within normal limits. Patient's headache is now resolved. She is well-appearing. 12/25/17 03:19 12/25/17 03:21 Dictation of this chart was performed using voice recognition software; therefore, there may be some unintended grammatical errors. - Vital Signs Vital signs: Temp Pulse Resp BP Pulse Ox 98.4 F 83 18 131/85 H 97 12/24/17 23:16 12/24/17 23:16 12/25/17 02:41 12/25/17 02:41 12/25/17 02:41 - Laboratory Result Diagrams: 12/25/17 01:20 12/25/17 01:20 Laboratory results interpreted by me: 12/25/17 12/25/17 12/25/17 00:50 01:20 01:20 Hgb 11.9 L RDW 15.3 H Sodium 146.3 H Chloride 108 H Albumin 3.4 L Urine Protein 100 H Urine Ketones TRACE H Urine Blood LARGE H Ur Leukocyte Esterase LARGE H Discharge - Discharge Clinical Impression: Preeclampsia in period, Pyuria Condition: Stable Disposition: ADMITTED OBSERVATION Admitting Provider: [facility] Admitted: Post
[2017-12-25 01:32] LABS: ABSOLUTE BASOPHILS # (AUTO) 0.1 10^3/uL (0.0-0.2); ABSOLUTE EOSINOPHILS # (AUTO) 0.3 10^3/uL (0.0-0.6); ABSOLUTE LYMPHOCYTES (AUTO) 3.3 10^3/uL (0.5-4.7); ABSOLUTE MONOCYTES (AUTO) 0.8 10^3/uL (0.1-1.4); ABSOLUTE NEUT (AUTO) 5.1 10^3/uL (1.7-8.2); BASOPHILS % (AUTO) 0.8 % (0-2); EOSINOPHILS % (AUTO) 3.3 % (0-6); HEMATOCRIT 36.1 % (36.0-47.0); HEMOGLOBIN 11.9 g/dL (12.0-15.5); LYMPHOCYTES % (AUTO) 34.4 % (13-45); MEAN CORPUSCULAR HEMOGLOBIN 28.8 pg (27.0-33.4); MEAN CORPUSCULAR VOLUME 87 fl (80-97); MONOCYTES % (AUTO) 8.5 % (3-13); PLATELET COUNT 385 10^3/uL (150-450); RED BLOOD COUNT 4.14 10^6/uL (3.72-5.28); RED CELL DISTRIBUTION WIDTH 15.3 % (11.5-14.0); TOTAL CELLS COUNTED % (AUTO) 100 %; WHITE BLOOD COUNT 9.6 10^3/uL (4.0-10.5)
[2017-12-25 01:37] LABS: INTERNATIONAL RATION (INR) 0.88; PROTHROMBIN TIME 12.4 SEC (11.4-15.4)
[2017-12-25 01:38] LABS: PARTIAL THROMBOPLASTIN TIME 30.3 SEC (23.5-35.8)
[2017-12-25] MEDS: MAGNESIUM SULFATE/D5W 1 GM/100 ML RTUPB IV SCH ×2 (01:44→02:23)
[2017-12-25] MEDS ORDERED: MAGNESIUM SULFATE 20 GM/500 ML RTUINJ IV PRN (01:44)
[2017-12-25] MEDS ORDERED: MAGNESIUM SULFATE/D5W 1 GM/100 ML RTUPB IV SCH (01:45)
[2017-12-25 01:54] LABS: ALANINE AMINOTRANSFERASE 33 U/L (9-52); ALBUMIN 3.4 g/dL (3.5-5.0); ALKALINE PHOSPHATASE 116 U/L (38-126); ANION GAP 9 (5-19); ASPARTATE AMINO TRANSFERASE 32 U/L (14-36); BILIRUBIN,DIRECT 0.2 mg/dL (0.0-0.4); BILIRUBIN,TOTAL 0.2 mg/dL (0.2-1.3); BLOOD UREA NITROGEN 11 mg/dL (7-20); CARBON DIOXIDE 29 mmol/L (22-30); CHLORIDE 108 mmol/L (98-107); GLUCOSE 89 mg/dL (75-110); LDH 574 U/L (313-618); POTASSIUM 4.2 mmol/L (3.6-5.0); SODIUM 146.3 mmol/L (137-145); TOTAL PROTEIN 6.5 g/dL (6.3-8.2); URIC ACID 5.5 mg/dL (2.5-6.2)
[2017-12-25 02:10] LABS: AMORPHOUS SEDIMENT,URINE TRACE /HPF; APPEARANCE,URINE CLOUDY; BILIRUBIN,URINE NEGATIVE (NEGATIVE); COLOR,URINE PINK; GLUCOSE, URINE NEGATIVE (NEGATIVE); KETONES,URINE TRACE mg/dL (NEGATIVE); LEUKOCYTE ESTERASE,URINE LARGE (NEGATIVE); NITRITE,URINE NEGATIVE (NEGATIVE); PROTEIN,URINE 100 mg/dL (NEGATIVE); URINE SPECIFIC GRAVITY 1.009; UROBILINOGEN,URINE NEGATIVE mg/dL (<2.0)
[2017-12-25] MEDS ORDERED: ACETAMINOPHEN 325 MG TABLET PO ONE (03:15)
[2017-12-25] MEDS ORDERED: CEFTRIAXONE INJ 1000 MG VIAL IV ONE (03:16)
--- NOTE | 2017-12-25 03:57 | Admission Physical ---
Datetime Report Generated by N: 12/25/2017 03:57 CURRENT ADMISSION Hx Assessment: The History has been Reviewed and is Current Chief Complaint: Other Chief Complaint Other: elevated blood pressure, pt given Magnesium in the ER. Indication for Induction: Not Applicable Indication for Induction- Other: GDMA2, non-compliance Admit Impression : Observation/Evaluation Admit Plan: Admit to Unit ALLERGIES Medication Allergies: Yes (Annotations: Data stored by [facility] on behalf of user) Medication Allergies: oxycodone HCl (12/15/2017) Latex: No Latex Allergies (Annotations: Data stored by [facility] on behalf of user) Food Allergies: N/A Environmental Allergies: N/A OBSTETRICAL HISTORY EDC: 12/24/2017 00:00 : 8 Para: 2 Term: 2 : 0 SAB: 3 IAB: 0 Ectopic: 1 Livin Cesareans: 0 VBACs: 0 Multiple Births: 0 Gestational Diabetes: No Rh Sensitization: No Incompetent Cervix: No SHANTI: No Infertility: No ART Treatment: No Uterine Anomaly: No IUGR: No Hx Previous C/S: No Macrosomia: No Hx Loss/Stillborn: No PIH: No Hx : No Placenta Previa/Abruption: No Depression/PP Depression: No PTL/PROM: No Post Hemorrhage: No Obstetrical History Comments: G1 G2 G3 G4 G5 G6 G7 G8 current SEE RECORDS Alcohol: No Marijuana : No Cocaine: No Other Illicit Drugs: No Cigarettes: Former Smoker. [id number] Cigarette Comments: stopped smoking over 3 years ago MEDICAL HISTORY Diabetes: Yes Diabetes Type: Gestational Diabetes Blood Transfusion: No Pulmonary Disease (Asthma, TB): No Breast Disease: No Hypertension: No Women Specialist Surgery: No Heart Disease: No Hosp/Surgery: No Autoimmune Disorder: No Anesthetic Complications: No Kidney Disease: No Abnormal Pap Smear: No Neuro/Epilepsy: No Psychiatric Disorders: No Other Medical Diseases: No Hepatitis/Liver Disease: No Significant Family History: No Varicosities/Phlebitis: No Trauma/Violence : No Thyroid Dysfunction: No INFECTIOUS HISTORY Gonorrhea: No Genital Herpes: Yes Chlamydia: No Tuberculosis: No Syphilis: No Hepatitis: No HIV/AIDS Exposure: No Rash or Viral Illness: No HPV: No PHYSICAL EXAM General: Normal HEENT: Normal Neurologic: Normal Thyroid: Normal Heart: Normal Lungs: Normal Breast: Deferred Back: Normal Abdomen: Normal Genitourinary Exam: Deferred Extremities: Normal DTRs: Normal Pelvic Type: Not Done Physical Exam Comments: pelvis proven 8lbs 14 oz Vital Signs: Reviewed VAGINAL EXAM Dilatation: 3 Effacement: 50 Station: -2 Contraction Comments: rare MEMBRANES Membranes: Ruptured Amniotic Fluid Color: Clear FETUS A EGA: 38.6 Monitoring: External US FHR- Baseline: 135 Variability: Moderate 6-25bpm Accelerations: 15X15 Decelerations: None FHR Category: Category I Estimated Weight (gm): 4000 Presentation: Vertex Admit Comment: Pt is delivered and is on Magnesium. She will be admitted for evaluation. We will have to wean off the MgSO4 and treat her blood pressure if elevated. PLANS FOR LABOR AND DELIVERY Labor and Delivery: None Pain Management: Epidural Feeding Preference: Breast Benefit of Breast Feed Discussed: Yes Circumcision: N/A INFORMED CONSENT Assignment: Payal Griffin MD Signature: with User ID: Amy : with User ID: Amy
[2017-12-25 04:06] VITALS: BP 131/92
[2017-12-25] MEDS ORDERED: MAGNESIUM SULFATE 20 GM/500 ML RTUINJ IV ONE (04:15)
[2017-12-25] MEDS ORDERED: RINGERS SOLUTION,LACTATED 1,000 ML IV PRN (04:50)
[2017-12-25] MEDS ORDERED: HYDRALAZINE HCL INJ/PF 20 MG/1 ML SDV ONE (05:11)
[2017-12-25] MEDS ORDERED: HYDRALAZINE HCL INJ/PF 20 MG/1 ML SDV IV ONE (05:19)
[2017-12-25 05:38] LABS: APPEARANCE,URINE CLEAR; BILIRUBIN,URINE NEGATIVE (NEGATIVE); COLOR,URINE STRAW; GLUCOSE, URINE NEGATIVE (NEGATIVE); KETONES,URINE NEGATIVE (NEGATIVE); LEUKOCYTE ESTERASE,URINE NEGATIVE (NEGATIVE); NITRITE,URINE NEGATIVE (NEGATIVE); PROTEIN,URINE NEGATIVE (NEGATIVE); URINE SPECIFIC GRAVITY 1.006; UROBILINOGEN,URINE NEGATIVE mg/dL (<2.0)
[2017-12-25 08:31] LABS: ABSOLUTE BASOPHILS # (AUTO) 0.1 10^3/uL (0.0-0.2); ABSOLUTE EOSINOPHILS # (AUTO) 0.3 10^3/uL (0.0-0.6); ABSOLUTE LYMPHOCYTES (AUTO) 2.5 10^3/uL (0.5-4.7); ABSOLUTE MONOCYTES (AUTO) 0.6 10^3/uL (0.1-1.4); ABSOLUTE NEUT (AUTO) 4.6 10^3/uL (1.7-8.2); BASOPHILS % (AUTO) 1.2 % (0-2); EOSINOPHILS % (AUTO) 3.3 % (0-6); HEMATOCRIT 37.4 % (36.0-47.0); HEMOGLOBIN 12.4 g/dL (12.0-15.5); LYMPHOCYTES % (AUTO) 31.3 % (13-45); MEAN CORPUSCULAR HEMOGLOBIN 28.7 pg (27.0-33.4); MEAN CORPUSCULAR HGB CONC 33.1 g/dL (32.0-36.0); MEAN CORPUSCULAR VOLUME 87 fl (80-97); MONOCYTES % (AUTO) 7.7 % (3-13); PLATELET COUNT 374 10^3/uL (150-450); RED BLOOD COUNT 4.33 10^6/uL (3.72-5.28); RED CELL DISTRIBUTION WIDTH 14.7 % (11.5-14.0); SEGMENTED NEUTROPHILS % (AUTO) 56.5 % (42-78); TOTAL CELLS COUNTED % (AUTO) 100 %; WHITE BLOOD COUNT 8.1 10^3/uL (4.0-10.5)
[2017-12-25] MEDS ORDERED: NIFEDIPINE 30 MG TAB.ER.24 PO ONE (09:57)
--- NOTE | 2018-01-01 10:03 | Admission Physical ---
Datetime Report Generated by CPN: 01/01/2018 10:02 CURRENT ADMISSION Hx Assessment: The History has been Reviewed and is Current Chief Complaint: Other Chief Complaint: Scheduled Induction of Labor Chief Complaint Other: elevated blood pressure, pt given Magnesium in the ER. Indication for Induction: Not Applicable Indication for Induction: Maternal Diabetes Indication for Induction- Other: GDMA2, non-compliance Admit Impression : Observation/Evaluation Admit Impression : Term, Intrauterine ; No Active Labor; Intact Membranes; Induction of Labor Admit Plan: Admit to Unit Admit Plan: Admit to Unit; Initiate Labor Induction Protocol ALLERGIES Medication Allergies: Yes (Annotations: Data stored by [employer] on behalf of user) Medication Allergies: oxycodone HCl (12/15/2017) Medication Allergies: oxycodone HCl (12/08/2017) Medication Allergies: oxycodone HCl (12/01/2017) Medication Allergies: oxycodone HCl (11/24/2017) Medication Allergies: oxycodone HCl (11/17/2017) Medication Allergies: oxycodone HCl (12/06/2010) Latex: No Latex Allergies (Annotations: Data stored by [employer] on behalf of user) Food Allergies: N/A Environmental Allergies: N/A OBSTETRICAL HISTORY EDC: 12/24/2017 00:00 : 8 Para: 2 Term: 2 : 0 SAB: 3 IAB: 0 Ectopic: 1 Livin Cesareans: 0 VBACs: 0 Multiple Births: 0 Gestational Diabetes: No Rh Sensitization: No Incompetent Cervix: No SHANTI: No Infertility: No ART Treatment: No Uterine Anomaly: No IUGR: No Hx Previous C/S: No Macrosomia: No Hx Loss/Stillborn: No PIH: No Hx : No Placenta Previa/Abruption: No Depression/PP Depression: No PTL/PROM: No Post Hemorrhage: No Obstetrical History Comments: G1 G2 G3 G4 G5 G6 G7 G8 current SEE RECORDS Alcohol: No Marijuana : No Cocaine: No Other Illicit Drugs: No Cigarettes: Former Smoker. [id number] Cigarette Comments: stopped smoking over 3 years ago MEDICAL HISTORY Diabetes: Yes Diabetes Type: Gestational Diabetes Blood Transfusion: No Pulmonary Disease (Asthma, TB): No Breast Disease: No Hypertension: No Gluing Crew Leader Surgery: No Heart Disease: No Hosp/Surgery: No Autoimmune Disorder: No Anesthetic Complications: No Kidney Disease: No Abnormal Pap Smear: No Neuro/Epilepsy: No Psychiatric Disorders: No Other Medical Diseases: No Hepatitis/Liver Disease: No Significant Family History: No Varicosities/Phlebitis: No Trauma/Violence : No Thyroid Dysfunction: No INFECTIOUS HISTORY Gonorrhea: No Genital Herpes: Yes Chlamydia: No Tuberculosis: No Syphilis: No Hepatitis: No HIV/AIDS Exposure: No Rash or Viral Illness: No HPV: No PHYSICAL EXAM General: Normal General: Normal HEENT: Normal HEENT: Normal Neurologic: Normal Neurologic: Normal Thyroid: Normal Thyroid: Deferred Heart: Normal Heart: Normal Lungs: Normal Lungs: Normal Breast: Deferred Breast: Normal Back: Normal Back: Normal Abdomen: Normal Abdomen: Normal Genitourinary Exam: Deferred Genitourinary Exam: Normal Extremities: Normal Extremities: Normal DTRs: Normal DTRs: Normal Pelvic Type: Not Done Pelvic Type: Adequate Physical Exam Comments: pelvis proven 8lbs 14 oz Vital Signs: Reviewed Vital Signs: Reviewed VAGINAL EXAM Dilatation: 3 Effacement: 50 Station: -2 Contraction Comments: rare MEMBRANES Membranes: Ruptured Amniotic Fluid Color: Clear FETUS A EGA: 38.6 EGA: 38.6 Monitoring: External US FHR- Baseline: 135 Variability: Moderate 6-25bpm Accelerations: 15X15 Decelerations: None FHR Category: Category I Estimated Weight (gm): 4000 Presentation: Vertex Admit Comment: Pt is delivered and is on Magnesium. She will be admitted for evaluation. We will have to wean off the MgSO4 and treat her blood pressure if elevated. Admit Comment: Admit to L _ D, iol gdmA2 on metformin non-compliant care started with ochd hx pre-e, on asa hx hsv no lesions or symptoms gbs +, pcn Pitocin per protocol may have epidural prn PLANS FOR LABOR AND DELIVERY Labor and Delivery: None Pain Management: Epidural Feeding Preference: Breast Benefit of Breast Feed Discussed: Yes Circumcision: N/A INFORMED CONSENT Assignment: Payal Griffin MD Signature: with User ID: Amy Signature: with User ID: Fan : with User ID: Amy : with User ID: Fan
== END 2017-12-25 11:00 | disposition home or self-care (01) ==
LOC: ER 22:40 → LR 12-25 03:26
PROVIDERS: ADMIT Obstetrics & Gynecology; ATTEND Obstetrics & Gynecology
DX: O24.435 Gestational diabetes mellitus in puerperium, controlled by oral hypoglycemic drugs (principal); O90.89 Other complications of the puerperium, not elsewhere classified; R11.0 Nausea; R51 Headache; R03.0 Elevated blood-pressure reading, without diagnosis of hypertension; R60.0 Localized edema; O86.20 Urinary tract infection following delivery, unspecified; Z91.14 Patient's other noncompliance with medication regimen; Z87.59 Personal history of other complications of pregnancy, childbirth and the puerperium; Z87.891 Personal history of nicotine dependence
CPT/HCPCS: 99285; 96365; 86900; 86901; 36415; 87086; 86850; 83615; 84550; 85025; 85610; 85730; 86592; 80053; 81001; J0360; J3490; J3475 ×2

== ENCOUNTER 2019-04-21 06:32 | Inpatient (IN) | payer MEDICAID ==
[2019-04-21 07:46] LABS: ABSOLUTE EOSINOPHILS # (AUTO) 0.2 10^3/uL (0.0-0.6); ABSOLUTE LYMPHOCYTES (AUTO) 2.9 10^3/uL (0.5-4.7); ABSOLUTE MONOCYTES (AUTO) 0.5 10^3/uL (0.1-1.4); BASOPHILS % (AUTO) 0.7 % (0-2); EOSINOPHILS % (AUTO) 2.3 % (0-6); HEMATOCRIT 35.3 % (36.0-47.0); HEMOGLOBIN 11.8 g/dL (12.0-15.5); LYMPHOCYTES % (AUTO) 44.4 % (13-45); MEAN CORPUSCULAR HEMOGLOBIN 28.3 pg (27.0-33.4); MEAN CORPUSCULAR HGB CONC 33.3 g/dL (32.0-36.0); MEAN CORPUSCULAR VOLUME 85 fl (80-97); MONOCYTES % (AUTO) 7.3 % (3-13); PLATELET COUNT 176 10^3/uL (150-450); RED BLOOD COUNT 4.16 10^6/uL (3.72-5.28); RED CELL DISTRIBUTION WIDTH 14.5 % (11.5-14.0); SEGMENTED NEUTROPHILS % (AUTO) 45.3 % (42-78); TOTAL CELLS COUNTED % (AUTO) 100 %; WHITE BLOOD COUNT 6.6 10^3/uL (4.0-10.5)
[2019-04-21] MEDS ORDERED: OXYTOCIN/NORMAL SALINE 20 UNIT/1,000 ML RTUINJ ONE (07:46)
[2019-04-21] MEDS ORDERED: MISOPROSTOL 0.2 MG TABLET ONE (07:46)
[2019-04-21] MEDS ORDERED: LIDOCAINE 1% INJ-PF (10 MG/ML) 30 ML SDV ONE (07:46)
[2019-04-21] MEDS ORDERED: OXYTOCIN 10 UNIT/ML VIAL ONE (07:46)
[2019-04-21 07:50] LABS: APPEARANCE,URINE SLIGHTLY-CLOUDY; BILIRUBIN,URINE NEGATIVE (NEGATIVE); COLOR,URINE YELLOW; GLUCOSE, URINE NEGATIVE (NEGATIVE); KETONES,URINE TRACE mg/dL (NEGATIVE); LEUKOCYTE ESTERASE,URINE NEGATIVE (NEGATIVE); NITRITE,URINE NEGATIVE (NEGATIVE); PROTEIN,URINE 100 mg/dL (NEGATIVE); URINE SPECIFIC GRAVITY 1.019; UROBILINOGEN,URINE NEGATIVE mg/dL (<2.0)
[2019-04-21] MEDS ORDERED: RINGERS SOLUTION,LACTATED 300 ML IV ONE (07:52)
[2019-04-21] MEDS ORDERED: OXYTOCIN/NORMAL SALINE 20 UNIT/1,000 ML RTUINJ IV PRN ×2 (07:52→13:45)
[2019-04-21] MEDS ORDERED: RINGERS SOLUTION,LACTATED 1,000 ML IV PRN (07:52)
[2019-04-21 08:07] LABS: URINE AMPHETAMINES SCREEN NEGATIVE; URINE BARBITURATES SCREEN NEGATIVE; URINE BENZODIAZEPINES SCREEN NEGATIVE; URINE COCAINE SCREEN NEGATIVE; URINE MARIJUANA (THC) SCREEN NEGATIVE; URINE METHADONE SCREEN NEGATIVE; URINE PHENCYCLIDINE SCREEN NEGATIVE
[2019-04-21] MEDS ORDERED: PHENYLEPHRINE HCL INJ/PF 10 MG/1 ML SDV ONE (12:24)
[2019-04-21] MEDS ORDERED: EPHEDRINE SULFATE INJ 50 MG/1 ML AMPULE ONE (12:24)
[2019-04-21] MEDS ORDERED: BUPIVACAINE HCL 0.25 % INJ/PF (2.5 MG/1 ML) 30 ML VIAL ONE (12:24)
[2019-04-21] MEDS ORDERED: FENTANYL CITRATE INJ/PF 100 MCG/2 ML AMPUL ONE (12:24)
[2019-04-21] MEDS ORDERED: FENTANYL/BUPIVACAINE/NS/PF 0 MCG/0 ML RTUINJ EPI ONE (12:24)
--- NOTE | 2019-04-21 13:37 | Admission Physical ---
Datetime Report Generated by CPN: 04/21/2019 13:37 CURRENT ADMISSION Chief Complaint: Scheduled Induction of Labor Indication for Induction: Maternal Diabetes Indication for Induction- Other: GDM A2 Admit Impression : Term, Intrauterine Admit Plan: Admit to Unit; Initiate Labor Induction Protocol ALLERGIES Medication Allergies: Yes Medication Allergies: oxycodone HCl (04/21/2019) Latex: No Latex Allergies OBSTETRICAL HISTORY EDC: 04/28/2019 00:00 : 8 Para: 4 Term: 3 : 0 SAB: 3 Ectopic: 1 Livin Cesareans: 0 VBACs: 0 Multiple Births: 0 Gestational Diabetes: Yes Rh Sensitization: No Incompetent Cervix: No SHANTI: No Infertility: No ART Treatment: No Uterine Anomaly: No IUGR: No Hx Previous C/S: No Macrosomia: No Hx Loss/Stillborn: No PIH: No Hx : No Placenta Previa/Abruption: No Depression/PP Depression: No PTL/PROM: No Post Hemorrhage: No Obstetrical History Comments: G1: 2005, <8 wks, SAB G2: 2004, <8 wks, SAB G3: 2006, <7 wks, SAB G4: 2007, <12 ectopic, surgically removed G5: 2010, 37 wks, 8lbs 14 oz, male, vaginal G6: 2014, 39.5 wks, 7lbs 2 oz, female, vaginal G7: SAB G8: 2018, 38.6 8lbs, 7 oz, female G9: current SEE RECORDS Alcohol: No Marijuana : No Cocaine: No Other Illicit Drugs: No Cigarettes: Former Smoker. [id number] MEDICAL HISTORY Diabetes: Yes (Annotations: Data stored by [employer] on behalf of user) Diabetes Type: Gestational Diabetes Blood Transfusion: No Pulmonary Disease (Asthma, TB): No Breast Disease: No Hypertension: No Dental Cream Maker Surgery: No Heart Disease: No Hosp/Surgery: Yes Autoimmune Disorder: No Anesthetic Complications: No Kidney Disease: No Abnormal Pap Smear: No Neuro/Epilepsy: No Psychiatric Disorders: No Other Medical Diseases: No Hepatitis/Liver Disease: No Significant Family History: No Varicosities/Phlebitis: No Trauma/Violence : No Thyroid Dysfunction: No Medical History Comments: heart murmur, (Annotations: Data stored by [employer] on behalf of user) INFECTIOUS HISTORY Gonorrhea: No Genital Herpes: Yes Chlamydia: No Tuberculosis: No Syphilis: No Hepatitis: No HIV/AIDS Exposure: No Rash or Viral Illness: No HPV: No Infectious History Comments: possible HSV outbreak at 35 weeks. PHYSICAL EXAM General: Normal HEENT: Normal Neurologic: Normal Thyroid: Deferred Heart: Normal Lungs: Normal Breast: Deferred Back: Normal Abdomen: Normal Genitourinary Exam: Normal Extremities: Normal DTRs: Deferred Pelvic Type: Adequate Vital Signs: Reviewed VAGINAL EXAM Dilatation: 5 Effacement: 80 Station: -2 Contraction Comments: Q2 mins MEMBRANES Membranes: Intact FETUS A EGA: 39.0 Monitoring: External US FHR- Baseline: 140 Variability: Moderate 6-25bpm Accelerations: 15X15 Decelerations: None FHR Category: Category I Estimated Weight (gm): 3600 Presentation: Vertex Presentation- Other: hand Admit Comment: admitted for IOL for GDMA2, hx of hsv-denies outbreak, prodromal sx, states she is taking valtrex; speculum exam normal. GBS neg AROM for clear fluid. pitocin infusing P: cont pitocin IOL, anticipate PLANS FOR LABOR AND DELIVERY Labor and Delivery: None Pain Management: Epidural Feeding Preference: Breast Circumcision: Yes INFORMED CONSENT Assignment: Esau Espinoza MD Signature: with User ID: [email or web address] : with User ID: [email or web address]
[2019-04-21] MEDS ORDERED: MISOPROSTOL 0.1 MG TABLET PR ONE (13:44)
[2019-04-21] MEDS ORDERED: BENZOCAINE/MENTHOL AEROSOL SPRAY 56 ML TOP PRN (13:45)
[2019-04-21] MEDS ORDERED: PROMETHAZINE HCL 25 MG SUPP.RECT PR PRN (13:45)
[2019-04-21] MEDS ORDERED: MAGNESIUM HYDROXIDE SUSP 30 ML UDCUP PO PRN (13:45)
[2019-04-21] MEDS ORDERED: ZOLPIDEM TARTRATE 5 MG TABLET PO PRN (13:45)
[2019-04-21] MEDS ORDERED: MEASLES,MUMPS&RUBELLA VACC/PF 0.5 ML VIAL SUBCUT PRN (13:45)
[2019-04-21] MEDS ORDERED: ACETAMINOPHEN WITH CODEINE #3 TABLET PO PRN (13:45)
[2019-04-21] MEDS ORDERED: ACETAMINOPHEN WITH CODEINE #3 TABLET ONE (13:45)
[2019-04-21] MEDS ORDERED: DIPHENHYDRAMINE HCL 25 MG CAPSULE PO PRN (13:45)
[2019-04-21] MEDS ORDERED: PROMETHAZINE HCL 25 MG TABLET PO PRN (13:45)
[2019-04-21] MEDS ORDERED: GLYCERIN/WITCH HAZEL LEAF 1 EACH MED..WIPE TP PRN (13:45)
[2019-04-21] MEDS ORDERED: ACETAMINOPHEN 650 MG SUPP.RECT PR PRN (13:45)
[2019-04-21] MEDS ORDERED: NA PHOS,M-B/NA PHOS,DI-BA (ADULT) 133 ML ENEMA PR PRN (13:45)
[2019-04-21] MEDS ORDERED: PROMETHAZINE HCL INJ 25 MG/1 ML VIAL IV PRN (13:45)
[2019-04-21] MEDS ORDERED: DIPH/PERTUSS(ACELL)/TETANUS VAC/PF 0.5 ML SYR (>=10YO) IM PRN (13:45)
[2019-04-21] MEDS ORDERED: PSEUDOEPHEDRINE HCL 30 MG TABLET PO PRN (13:45)
[2019-04-21] MEDS ORDERED: DIBUCAINE 1% OINTMENT 56 GM TP PRN (13:45)
--- NOTE | 2019-04-21 14:01 | Warning Signs in Babies ---
VOD Warning Signs Datetime Report Generated by [facility]: 04/21/2019 14:01 VOD#608 -Warning Signs in Babies: Viewed with Parent(s)/Family (04/21/2019 13:40:Samantha Villa RN)
--- NOTE | 2019-04-21 15:36 | Delivery Summary ---
Del Sum A-C Datetime Report Generated by CPN: 04/21/2019 15:36 DELIVERY PERSONNEL DELIVERY PERSONNEL: [id number] Delivery Doctor:: Bianca Guillen CNM Labor and Delivery Nurse:: Samantha Villa RNindustrial engineering technologist Nurse:: CHUYITA Ziegler Waxed Bag Machine Operator/STOCK PARTS INSPECTOR: Jadyn Reza CNA II MATERNAL INFORMATION Delivery Anesthesia: None Medications After Delivery: Pitocin Drip 20 Units/1000ml NSS; Cytotec 1000mcg Per Rectum/Vagina Delivery QBL: 800 Maternal Complications: None Provider Comments: TANYA WITH RIGHT COMPOUND HAND AND LOOSE NUCHAL CORD REDUCED AFER DELIVERY OF HEAD. LARGE BLOOD JUST PRIOR TO DELIVERY AND DURING DELIVERY INDICATIVE OF ABRUPTION. CORD DOUBLE CLAMPED AND CUT. ACTIVE MGT OF 3RD STAGE INITIATED JUST AFTER DELIVERY OF . SPONTANEOUS INTACT PLACENTA WITH 3VC WITHIN 3 MINS OF DELIVERY OF INFANT BUT APPEARS NORMAL, SENT TO PATHOLOGY. SKC=[id number]. CYTOTEC 1000MCG GIVEN MI. MOTHER AND STABLE IN L_D#2. LABOR SUMMARY EDC: 04/28/2019 00:00 No. Babies in Womb: 1 Attempted: No Labor Anesthesia: None LABOR INFORMATION Reason for Induction: Maternal Diabetes Onset of Labor: 04/21/2019 12:11 Complete Dilatation: 04/21/2019 13:08 Oxytocin: Induction Group B Beta Strep: negative Steroids Given: None Reason Steroids Not Administered: Not Applicable MEMBRANES Membranes Rupture Method: Artificial Rupture of Membranes: 04/21/2019 12:11 Length of Rupture (hr): 0.98 Amniotic Fluid Color: Clear Amniotic Fluid Amount: Moderate Amniotic Fluid Odor: None STAGES OF LABOR Stage 1 hr: 0 Stage 1 min: 57 Stage 2 hr: 0 Stage 2 min: 2 Stage 3 hr: 0 Stage 3 min: 3 Total Time in Labor hr: 1 Total Time in Labor min: 2 VAGINAL DELIVERY Episiotomy: None Laceration #1: None Laceration Extension #1: N/A Laceration Repair: Not Applicable Sponge Count Correct: N/A Sharps Count Correct: N/A CSECTION DELIVERY Primary Indication: N/A Secondary Indication: N/A CSection Incidence: N/A Labor: N/A Elective: N/A CSection Incision: N/A BABY A INFORMATION Infant Delivery Date/Time: 04/21/2019 13:10 Method of Delivery: Vaginal Born in Route : No : N/A Forceps: N/A Vacuum Extraction: N/A Shoulder Dystocia : No PRESENTATION/POSITION BABY A Presentation: Cephalic Cephalic Presentation: Vertex Vertex Position: Right Occipital Anterior Breech Presentation: N/A PLACENTA INFORMATION BABY A Placenta Delivery Time : 04/21/2019 13:13 Placenta Method of Delivery: Expressed Placenta Status: Delivered SCORES BABY A Heart Rate 1 min: >100 bpm Resp Effort 1 min: Good Cry Reflex Irritability 1 min: Cough or Sneeze or Pulls Away Muscle Tone 1 min: Active Motion Color 1 min: Body Chandler, Extremities Blue Resuscitation Effort 1 min: Tactile Stimulation SCORE 1 MIN: 9 Heart Rate 5 min: >100 bpm Resp Effort 5 min: Good Cry Reflex Irritability 5 min: Cough or Sneeze or Pulls Away Muscle Tone 5 min: Active Motion Color 5 min: Body Chandler, Extremities Blue Resuscitation Effort 5 min: N/A SCORE 5 MIN: 9 INFORMATION BABY A Gestational Age at Delivery: 39.0 Gestational Status: Full Term- 39- 40.6 Weeks Infant Outcome : Liveborn Infant Condition : Stable Infant Sex: Male IDENTIFICATION BABY A Verification Date/Time: 04/21/2019 13:28 ID Band Number: [id number] Mother's Name Verified: Yes Infant RN Verifying Infant: M. Allen RN, S. Camp RN WEIGHT/LENGTH BABY A Infant Birthweight (gm): 3477 Weight (lb): 7 Weight (oz): 11 Infant Length (in): 21.00 Infant Length (cm): 53.34 CORD INFORMATION BABY A No. Cord Vessels: 3 Nuchal Cord : Around Neck x1, Loose Cord Blood Taken: Yes-For Eval (Mom's Blood Type - or O+) Infant Suction: Mouth; Nose ASSESSMENT BABY A Infant Complications: None Physical Findings at Delivery: Within Normal Limits Respirations: Appears Normal Bag Making Machine Tender/ALS Called : No Infant Care By: D. Sirenaavance RNC Transferred To: Remains with Mother BABY B INFORMATION : N/A SIGNATURES Assignment: Esau Espinoza MD Signature: with User ID: [email or web address] : with User ID: [email or web address] : I was personally available for consultation and serving as supervising physician for the MLP.
[2019-04-21] MEDS: IBUPROFEN 800 MG TABLET PO SCH ×2 (17:44→22:12)
[2019-04-21] MEDS: FERROUS SULFATE 325 MG TABLET PO SCH (18:18)
[2019-04-21] MEDS: DOCUSATE SODIUM 100 MG CAPSULE PO SCH (18:18)
[2019-04-21] MEDS: VALACYCLOVIR HCL 500 MG TABLET PO SCH (18:18)
[2019-04-21] MEDS: ACETAMINOPHEN WITH CODEINE #3 TABLET PO PRN (20:05)
[2019-04-21] MEDS: FAMOTIDINE 20 MG TABLET PO SCH (22:12)
[2019-04-22] MEDS: IBUPROFEN 800 MG TABLET PO SCH ×3 (05:45→21:26)
[2019-04-22] MEDS: VALACYCLOVIR HCL 500 MG TABLET PO SCH ×2 (05:46→17:38)
[2019-04-22 08:52] LABS: ABSOLUTE EOSINOPHILS # (AUTO) 0.2 10^3/uL (0.0-0.6); ABSOLUTE LYMPHOCYTES (AUTO) 3.3 10^3/uL (0.5-4.7); ABSOLUTE MONOCYTES (AUTO) 0.6 10^3/uL (0.1-1.4); ABSOLUTE NEUT (AUTO) 5.8 10^3/uL (1.7-8.2); BASOPHILS % (AUTO) 0.5 % (0-2); EOSINOPHILS % (AUTO) 1.6 % (0-6); HEMATOCRIT 30.1 % (36.0-47.0); HEMOGLOBIN 10.1 g/dL (12.0-15.5); LYMPHOCYTES % (AUTO) 33.2 % (13-45); MEAN CORPUSCULAR HEMOGLOBIN 28.6 pg (27.0-33.4); MEAN CORPUSCULAR HGB CONC 33.4 g/dL (32.0-36.0); MEAN CORPUSCULAR VOLUME 86 fl (80-97); MONOCYTES % (AUTO) 6.1 % (3-13); PLATELET COUNT 171 10^3/uL (150-450); RED BLOOD COUNT 3.51 10^6/uL (3.72-5.28); RED CELL DISTRIBUTION WIDTH 14.9 % (11.5-14.0); SEGMENTED NEUTROPHILS % (AUTO) 58.6 % (42-78); TOTAL CELLS COUNTED % (AUTO) 100 %
[2019-04-22] MEDS: DOCUSATE SODIUM 100 MG CAPSULE PO SCH ×2 (09:59→17:38)
[2019-04-22] MEDS: SENNOSIDES/DOCUSATE 8.6-50 MG 1 EACH TABLET PO SCH (09:59)
[2019-04-22] MEDS: FAMOTIDINE 20 MG TABLET PO SCH ×2 (09:59→21:26)
[2019-04-22] MEDS: PRENATAL VITAMIN W DHA CAPSULE PO SCH (09:59)
[2019-04-22] MEDS: FERROUS SULFATE 325 MG TABLET PO SCH ×2 (09:59→17:38)
--- NOTE | 2019-04-22 13:21 | PDOC PROGRESS REPORT ---
Subjective-OB Progress Note for:: 04/22/19 Subjective: Pt doing well, no complaints. Reports light bleeding, reg diet and voiding without difficulty. Physical Exam (OB) Vital Signs: Temp Pulse Resp BP Pulse Ox 97.8 F 82 18 114/78 98 04/22/19 07:24 04/22/19 07:24 04/22/19 07:24 04/22/19 07:24 04/22/19 07:24 Intake & Output 04/21/19 04/22/19 04/23/19 06:59 06:59 06:59 Weight 118.1 kg - Lochia Lochia Amount: Small 10-25 ml Lochia Color: Rubra/Red - Abdomen Description: Soft Hernia Present: No Fundal Description: Firm, Midline Fundal Height: u/u - u/2 Objective-Diagnostic Laboratory: 04/22/19 08:22 04/22/19 08:22 WBC 10.0 RBC 3.51 L Hgb 10.1 L Hct 30.1 L MCV 86 MCH 28.6 MCHC 33.4 RDW 14.9 H Plt Count 171 Seg Neutrophils % 58.6 Assessment and Plan(PN) - Assessment and Plan (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 Qualified Code(s): A60.04 - Herpesviral vulvovaginitis Is this a current diagnosis for this admission?: Yes (2) Obesity (BMI 30.0-34.9) Is this a current diagnosis for this admission?: Yes (3) hemorrhage Qualifiers: hemorrhage type: third-stage Qualified Code(s): O72.0 - Third- stage hemorrhage Is this a current diagnosis for this admission?: Yes (4) Vaginal delivery Is this a current diagnosis for this admission?: Yes (5) Carrier of group B Streptococcus Is this a current diagnosis for this admission?: Yes (6) Gestational diabetes mellitus (GDM) treated with oral hypoglycemic therapy Is this a current diagnosis for this admission?: Yes - Time Spent with Patient Time with patient: Less than 15 minutes Medications reviewed and adjusted accordingly: Yes - Disposition Anticipated Discharge: Home Within: within 24 hours
[2019-04-22] MEDS: ACETAMINOPHEN WITH CODEINE #3 TABLET PO PRN (20:07)
[2019-04-23] MEDS: VALACYCLOVIR HCL 500 MG TABLET PO SCH (05:07)
[2019-04-23] MEDS: IBUPROFEN 800 MG TABLET PO SCH ×2 (05:07→15:43)
[2019-04-23 08:14] VITALS: BP 124/81
--- NOTE | 2019-04-23 09:04 | PDOC DISCHARGE SUMMARY ---
Final Diagnosis Discharge Date: 04/23/19 - Final Diagnosis (1) Genital HSV Is this a current diagnosis for this admission?: Yes (2) Obesity (BMI 30.0-34.9) Is this a current diagnosis for this admission?: Yes (3) hemorrhage Is this a current diagnosis for this admission?: Yes (4) Vaginal delivery Is this a current diagnosis for this admission?: Yes (5) Carrier of group B Streptococcus Is this a current diagnosis for this admission?: Yes (6) Gestational diabetes mellitus (GDM) treated with oral hypoglycemic therapy Is this a current diagnosis for this admission?: Yes Discharge Data - Discharge Medication Home Medications: No.137/Iron/Folic Acd [ Vitamin Tablet] 1 each PO [id number] 10/18/14 Acyclovir [Acyclovir 400 mg Tablet] 400 mg PO BID 04/21/19 Glyburide [Diabeta 5 mg Tablet] 8 mg PO QAM 04/21/19 Reason(s) for Admission: Onset of Labor Procedures: NST Intrapartum Procedure(s): Spontaneous Vaginal Delivery - Diagnosis Test Laboratory: Temp Pulse Resp BP Pulse Ox 98.1 F 83 16 124/81 99 04/23/19 08:09 04/23/19 08:09 04/23/19 08:09 04/23/19 07:55 04/23/19 08:09 04/21/19 04/21/19 04/22/19 06:35 07:30 08:22 RBC 4.16 3.51 L Hgb 11.8 L 10.1 L Hct 35.3 L 30.1 L Urine Opiates Screen NEGATIVE - Discharge information/Instructions Discharge Activity: Balance Activity w/Rest, Pelvic Rest Discharge Diet: Regular Disposition: HOME, SELF-CARE Follow up with: [facility] in: 4, Weeks
[2019-04-23] MEDS: DOCUSATE SODIUM 100 MG CAPSULE PO SCH (11:15)
[2019-04-23] MEDS: SENNOSIDES/DOCUSATE 8.6-50 MG 1 EACH TABLET PO SCH (11:15)
[2019-04-23] MEDS: FERROUS SULFATE 325 MG TABLET PO SCH (11:15)
[2019-04-23] MEDS: PRENATAL VITAMIN W DHA CAPSULE PO SCH (11:15)
[2019-04-23] MEDS: FAMOTIDINE 20 MG TABLET PO SCH (11:15)
== END 2019-04-23 15:50 | disposition home or self-care (01) | DRG 806 ==
LOC: LR 06:32 → 2S 15:15
PROVIDERS: ADMIT Obstetrics & Gynecology Gynecology; ATTEND Obstetrics & Gynecology Gynecology
PROC: 10E0XZZ Delivery of Products of Conception, External Approach (ICD-10-PCS; principal; 2019-04-21)
DX: O99.824 Streptococcus B carrier state complicating childbirth (principal); O98.52 Other viral diseases complicating childbirth; Z37.0 Single live birth; O24.425 Gestational diabetes mellitus in childbirth, controlled by oral hypoglycemic drugs; O72.0 Third-stage hemorrhage; B00.9 Herpesviral infection, unspecified; O69.81X0 Labor and delivery complicated by cord around neck, without compression, not applicable or unspecified; Z3A.39 39 weeks gestation of pregnancy
CPT/HCPCS: 36415; 80307; 81005; 85025; 86592; 86850; 86900; 86901; 88307; 94760; J2370; J2590; J3010; J3490

== ENCOUNTER 2019-06-22 10:11 | Day surgery (SDC) | payer MEDICAID ==
[2019-06-20 10:49] LABS: HEMATOCRIT 36.3 % (36.0-47.0); HEMOGLOBIN 12.1 g/dL (12.0-15.5); MEAN CORPUSCULAR HEMOGLOBIN 28.2 pg (27.0-33.4); MEAN CORPUSCULAR HGB CONC 33.2 g/dL (32.0-36.0); MEAN CORPUSCULAR VOLUME 85 fl (80-97); PLATELET COUNT 306 10^3/uL (150-450); RED BLOOD COUNT 4.28 10^6/uL (3.72-5.28); RED CELL DISTRIBUTION WIDTH 16.4 % (11.5-14.0)
[2019-06-20 10:51] LABS: APPEARANCE,URINE SLIGHTLY-CLOUDY; BILIRUBIN,URINE NEGATIVE (NEGATIVE); COLOR,URINE YELLOW; GLUCOSE, URINE NEGATIVE (NEGATIVE); KETONES,URINE NEGATIVE (NEGATIVE); LEUKOCYTE ESTERASE,URINE NEGATIVE (NEGATIVE); NITRITE,URINE NEGATIVE (NEGATIVE); PROTEIN,URINE 30 mg/dL (NEGATIVE); URINE SPECIFIC GRAVITY 1.029
[~2019-06-22 10:11] MED LIST: DEXAMETHASONE SOD PHOSPHATE INJ 4 MG/1 ML VIAL ONE; GLYCOPYRROLATE 1 MG/5 ML VIAL ONE; KETOROLAC TROMETHAMINE 60 MG/2 ML SDV ONE; LACTATED RINGERS 1000 ML IV PRN; LIDOCAINE 0.5% INJ-PF (5 MG/ML) 50 ML SDV SUBCUT PRN; LIDOCAINE 0.5%/EPINEPHRINE INJ 50 ML VIAL ONE; NEOSTIGMINE METHYLSULFATE 10 MG/10 ML VIAL ONE; ONDANSETRON HCL INJ/PF 4 MG/2 ML SDV ONE; ROCURONIUM BROMIDE INJ 50 MG/5 ML VIAL IV ONE
[2019-06-22] MEDS ORDERED: HYDROMORPHONE HCL INJ/PF 2 MG/ML AMPULE ONE (12:48)
[2019-06-22] MEDS ORDERED: MIDAZOLAM 2 MG/2 ML INJ ONE (12:48)
[2019-06-22] MEDS ORDERED: FENTANYL CITRATE INJ/PF 100 MCG/2 ML AMPUL ONE (12:48)
[2019-06-22] MEDS ORDERED: PROPOFOL INJ 200 MG/20 ML VIAL IV ONE (12:48)
[2019-06-22] MEDS ORDERED: BUPIVACAINE HCL 0.25 % INJ/PF (2.5 MG/1 ML) 30 ML VIAL ONE (12:50)
[2019-06-22] MEDS ORDERED: FENTANYL CITRATE INJ/PF 100 MCG/2 ML AMPUL IV PRN ×3 (13:36)
[2019-06-22] MEDS ORDERED: PROMETHAZINE HCL INJ 25 MG/1 ML VIAL IV PRN ×2 (13:36)
[2019-06-22] MEDS ORDERED: MEPERIDINE HCL/PF INJ 25 MG/1 ML DISP.SYRIN IV PRN (13:36)
[2019-06-22] MEDS ORDERED: DIPHENHYDRAMINE HCL 50 MG/ML VIAL IV PRN (13:36)
[2019-06-22] MEDS ORDERED: HYDROMORPHONE HCL INJ/PF 2 MG/ML AMPULE IV PRN (13:37)
--- NOTE | 2019-06-22 14:30 | Operative Report ---
Operative Report DATE OF SURGERY: 06/22/19 PREOPERATIVE DIAGNOSIS: Undesired fertility. Multiparity POSTOPERATIVE DIAGNOSIS: Same as above OPERATION: Laparoscopic bilateral tubal ligation with Filshie clips SURGEON: KRISTIN BAKER ANESTHESIA: GA TISSUE REMOVED OR ALTERED: None COMPLICATIONS: None ESTIMATED BLOOD LOSS: 5 cc INTRAOPERATIVE FINDINGS: Normal appearing bilateral fallopian tubes, uterus and right ovary PROCEDURE: IV fluids: per anesthesia record Urinary output: 300 cc Findings: Normal-appearing uterus bilateral fallopian tubes and right ovaries Position: To recovery room in stable condition Description of procedure: The patient was taken to the operating room and general anesthesia was administered and found to be adequate. She was then placed on the OR table in the doral lithotomy position. The Patient was prepped and draped in usual sterile fashion. Timeout was taken. A Land retractor was used as well as a weighted speculum to visualize the cervix. The anterior lip of the cervix was then grasped with a ring forcep and an acorn uterine manipulator was placed. At this time attention was turned of the patient's abdomen and sterile gloves were donned a 1 cm infraumbilical incision was made horizontally and carried down to the level of the rectus fascia. The rectus fascia was then grasped with 2 Allis clamps elevated and incised with Lemons scissors. A digital sweep was done noting entry into the peritoneum. A #10 Aparicio trocar was positioned and CO2 gas was used to insufflate the abdomen to a quantity sufficient for the dose of mercury. The laparoscope was inserted and a survey was done of the abdomen pictures were obtained findings noted normal anatomy the right fallopian tube was identified and traced to its fimbriated end. The right ovary was noted to be normal. A Filshie clip was then placed approximately 1 to 2 cm from the uterine cornu across the right fallopian tube the Filshie clip was noted to surround the tube in its entirety good blanching was noted. Hemostasis was noted. The left fallopian tube was then traced to its Panretin and and a Filshie clip was then placed 1 to 2 cm from the uterine cornu on the left. The Filshie clip was noted to surround the tube in its entirety with good blanching was noted along with hemostasis. Pictures were obtained at this point the procedure was terminated. All instrument removed from the patient's abdomen and CO2 gas was allowed to escape. The infraumbilical port was removed the fascia was closed with 0 Vicryl suture the skin was closed with 3-0 Monocryl in a series of interrupted stitiches. The skin incision was then clean dried and Dermabond was applied over the skin incision. All instrument sponge and needle counts were correct x3 for the procedure the patient tolerated the procedure well. She will proceed to recovery room in stable condition
--- NOTE | 2019-06-22 16:03 | Discharge Summary ---
Discharge Summary (SDC) - Discharge Final Diagnosis: Undesired fertility Multigravida Date of Surgery: 06/22/19 Condition: Stable Forms: ASU Anesthesia D/C Instruction, Discharge POC-Surgical Service Treatment or Instructions: Diet as tolerated. No driving while taking narcotic medications No heavy lifting > 15 lbs for 6 wks. May not spotting for up to 7 days. May shower as tolerating Prescriptions: Ibuprofen [Motrin 800 mg Tablet] 800 mg PO Q8H PRN #30 tab PRN Reason: Hydrocodone/Acetaminophen [Sunman 5-325 Tablet] 1 each PO Q6 PRN 5 Days #15 tablet PRN Reason: Referrals: KRISTIN BAKER MD [Primary Care Provider] - Respiratory Treatments at Home: Deep Breathing/Coughing Discharge Activity: Activity As Tolerated, No Driving, No Lifting Over 10 Pounds, Pelvic Rest, No tub bath Home Care Assistance: None Needed Report the Following to Your Physician Immediately: Shortness of Breath, Increase in Pain, Fever over 101 Degrees, Unusual Bleeding, Drainage-Foul Smelling
[2019-06-22 16:49] VITALS: BP 139/93
== END 2019-06-22 16:25 | disposition home or self-care (01) ==
LOC: OROUT 10:11
PROVIDERS: ATTEND Obstetrics & Gynecology
DX: Z30.2 Encounter for sterilization (principal); Z87.891 Personal history of nicotine dependence; Z79.82 Long term (current) use of aspirin
CPT/HCPCS: 36415; 85027; 81005; 81025; 58670; J2250; J3490 ×3; J1100; J1885; J3010; J2710; J1170; J2405; J2704; 851